=== PATIENT | female | born 1955 | race Caucasian/White ===

== ENCOUNTER 2018-09-09 10:41 | Outpatient (CLI) | payer BC, SELFPAY ==
[2018-09-09 12:53] LABS: HCT 45.9 % (36.0-46.0); HGB 15.2 g/dL (12.0-15.5); Mean Corp. HGB Concentration 33.1 g/dL (32.0-36.0); Mean Corpuscular Hemoglobin 30.9 pg (27.0-33.0); Mean Corpuscular Volume 93.3 fL (80-95); Mean Platelet Volume 10.7 fL (8.0-11.0); Platelet Count 240 x1000/uL (130-400); RBC 4.92 m/cumm (4.00-5.20); RBC Distribution Width 13.1 % (11.7-14.6); White Blood Cell Count 7.46 k/cumm (4.4-10.8)
[2018-09-09 13:20] LABS: ALT 62 U/L (12-78); AST 49 U/L (15-37); Albumin 3.6 g/dL (3.4-5.0); Alkaline Phosphatase 149 U/L (46-116); Anion Gap 5.3 mmol/L (3-11); BUN 14 mg/dL (7-18); Bilirubin, Total 0.4 mg/dL (0.2-1.0); CO2 28.7 mmol/L (21.0-32.0); CREATININE 0.98 mg/dL (0.55-1.02); Calcium 9.6 mg/dL (8.5-10.1); Chloride 103 mmol/L (98-107); Cholesterol 226 mg/dL (50-200); Estimated GFR 57.14 (mL/min/1.73m2); Glucose 113 mg/dL (70-100); HDL Cholesterol 50 mg/dL (40-60); LDL CHOLESTEROL 156 mg/dL (<100); Magnesium 1.9 mg/dL (1.8-2.4); Sodium 137 mmol/L (136-145); Total Protein 6.9 g/dL (6.4-8.2); Triglyceride 107 mg/dL (30-150)
== END 2018-09-09 11:01 ==
PROVIDERS: PCP Family Medicine; Visit Provider Family Medicine
DX: Z00.00 Encounter for general adult medical examination without abnormal findings (principal); D75.1 Secondary polycythemia; I10 Essential (primary) hypertension
CPT/HCPCS: 36415; 80053; 80061; 83721; 85027; 83735

== ENCOUNTER 2020-12-13 01:31 | Outpatient (CLI) | payer BC, SELFPAY ==
--- NOTE | 2020-12-13 | DI.DEXA_ITS ---
EXAM: XR DEXA BONE DENSITY W/WO TIERA CLINICAL HISTORY: RT BREAST CA,C50.111,Z17.0,ON ARAOMATSE INHIBITOR, SCREENING FOR OSTEO- TECHNIQUE: Routine DEXA evaluation of the lumbar spine, hip, or forearm. COMPARISON: No exams were available for comparison FINDINGS: Performed on a Hologic unit. Lateral image: No compression fracture evident. Lumbar Spine total T-score: -0.5 Hip total T-score:-0.4 independent reading at the femoral neck yields a T-score of -1.2 Forearm total T-score: -2.2 IMPRESSION: Bone mineral density measures in the osteopenia range. Fracture risk is moderate. Note: Any spine fracture indicates 5x risk for subsequent spine fracture and 2x risk for subsequent h ip fracture. World Health Organization criteria for BMD interpretation classify patients: Normal...... T- Score at or above -1.0 Osteopenic... T- Score between -1.0 and -2.5 Osteoporosis... T-Score at or below -2.5
== END 2020-12-13 01:51 ==
PROVIDERS: PCP Family Medicine; Visit Provider Nurse Practitioner Adult Health
DX: C50.111 Malignant neoplasm of central portion of right female breast (principal); Z17.0 Estrogen receptor positive status [ER+]; Z13.820 Encounter for screening for osteoporosis; M85.88 Other specified disorders of bone density and structure, other site
CPT/HCPCS: 77080

== ENCOUNTER 2022-06-05 03:37 | Outpatient (CLI) | payer BC, SELFPAY ==
[2022-06-05 08:31] LABS: ALT 17 U/L (14-59); AST 21 U/L (15-37); Albumin 3.3 g/dL (3.4-5.0); Alkaline Phosphatase 101 U/L (46-116); Anion Gap 4.9 mmol/L (3-11); BUN 6 mg/dL (7-18); Bilirubin, Total 0.4 mg/dL (0.2-1.0); CO2 30.1 mmol/L (21.0-32.0); CREATININE 0.7 mg/dL (0.55-1.02); Calcium 9.7 mg/dL (8.5-10.1); Calculated LDL 118 mg/dL (<100); Chloride 99 mmol/L (98-107); Cholesterol 185 mg/dL (<200); Estimated GFR 94.15 (mL/min/1.73m2); Glucose 106 mg/dL (74-106); HDL Cholesterol 46 mg/dL (40-60); Potassium 3.5 mmol/L (3.5-5.1); Sodium 134 mmol/L (136-145); Total Protein 7.3 g/dL (6.4-8.2); Triglyceride 107 mg/dL (<150)
== END 2022-06-05 03:38 | disposition home or self-care (01) ==
LOC: LBO 03:37
PROVIDERS: PCP Family Medicine; Visit Provider Family Medicine
DX: I10 Essential (primary) hypertension (principal)
CPT/HCPCS: 36415; 80053; 80061

== ENCOUNTER 2022-08-02 23:14 | Outpatient (REF) | payer BC, SELFPAY ==
[2022-08-02 21:46] LABS: Bilirubin Negative (Negative); Blood Negative (Negative); Clarity Clear (Clear); Glucose Negative (Negative); Ketones Negative (Negative); Leukocyte Esterase Negative (Negative); Nitrite Negative (Negative); Specific Gravity 1.015 (1.005-1.025); Urobilinogen 0.2 EU/dL (Up TO 0.2)
== END 2022-08-02 23:15 | disposition home or self-care (01) ==
LOC: LBN 23:14
PROVIDERS: PCP Family Medicine; Visit Provider Nurse Practitioner Family
DX: R39.9 Unspecified symptoms and signs involving the genitourinary system (principal)
CPT/HCPCS: 81003

== ENCOUNTER 2022-09-11 11:36 | Inpatient (IN) | payer BC, SELFPAY ==
[2022-09-11] VITALS (25 sets, daily range): BP systolic 100–119; BP diastolic 61–75; PULSE 77–97; RESP 16–18; TEMP 36.6–37.2; O2SAT 92–99
--- NOTE | 2022-09-11 12:00 | RT.EKG_ITS ---
APPROVED REPORT Exam: Resting ECG Reason for Exam: weakness Patient Location: E HR:84 bpm ECG Measurements Heart Rate 84 AXIS ND 159 P 58 QRSd 87 QRS 15 QT 385 T 45 QTc 456 Conclusion Sinus rhythm. Low voltage, precordial leads
--- NOTE | 2022-09-11 12:14 | DI.RAD_ITS ---
Exam(s) XR CHEST 1V IN DI DEPT EXAM: XR CHEST 1V IN DI DEPT CLINICAL HISTORY: weakness, weight loss. TECHNIQUE: 2D digital imaging was performed. COMPARISON: CR CHEST 2 VIEWS PA,LAT from 06/30/2013 FINDINGS: Single AP portable view. Heart size normal. Mediastinum not widened. Right lung is clear. There is bandlike infiltrate in t he mid left lung field. No pleural effusions. Air is seen subjacent to right hemidiaphragm but appears to be probably intraluminal within interposi tion bowel loop between the diaphragm right hepatic lobe. IMPRESSION: Bandlike infiltrate mid left lung field. No obvious pleural effusions. DATA REPOSITORY: RADIATION DOSE DELIVERED:
--- NOTE | 2022-09-11 12:14 | ED.GENADUL_ITS ---
Discharge Plan Disposition Patient Disposition: Admit to [facility] Condition: Improving Discharge Details Chief Complaint: GenMedical Clinical Impression: Metastatic carcinoma, Hyponatremia Primary Care Provider: Mehreen Vargas ED Provider: Jayden Lawler Home Meds and New Rx's Prescriptions: No Action nystatin 100,000 unit/gram cream 1 applic Topical DAILY PRN (Reason: rash) Qty: 15 4RF Rx Instructions: pt will call when needed ondansetron 8 mg tablet,disintegrating 8 mg PO Q12H PRN (Reason: nausea and vomiting) Qty: 30 0RF atenolol 25 mg tablet See Rx Instructions .ROUTE .COMPLEX Qty: 90 4RF Dose Instruction: TAKE ONE TABLET BY MOUTH DAILY Rx Instructions: TAKE ONE TABLET BY MOUTH DAILY amlodipine-benazepril [Lotrel] 10-20 mg capsule 1 cap PO DAILY Qty: 90 4RF gabapentin 300 mg capsule 300 mg PO DAILY Qty: 90 12RF letrozole 2.5 mg tablet 2.5 mg PO DAILY Qty: 90 4RF acetaminophen 500 MG tablet 1,000 mg PO Q6H PRN calcium carbonate 600 MG tablet 600 mg PO DAILY Label Comments: unsure of mg 10/24/15 AT cholecalciferol (vitamin D3) 1,000 UNIT tablet 1,000 unit PO DAILY Label Comments: unsure of mg Medical Decision Making 67-year-old female presents from home. She complains of months of decreased p.o. intake, weight loss, lethargy, generalized weakness. She states she believes it is related to depression she has felt since the untimely loss of life of her granddaughter. She does not report any acute change. She denies fever, chills, cough. Patient arrives to the ER alert and interactive. Her pulse was high at 96 and blood pressure 100/65. She is somewhat pale in appearance. The review diagnosis is probable. We would include metabolic abnormality such as dehydration or electrolyte abnormality, anemia, occult urinary tract infection. Her medical history includes adenocarcinoma of the right breast and infiltrating ductal carcinoma of the breast in 2012. Patient had IV access established, she unremarkable orthostatic vital signs. She was referred for laboratory testing. Labs reveal an elevated blood cell count of 19, hematocrit 35, platelets 357. There is left shift present. She is hyponatremic with a sodium of 120 potassium 3.7, chloride 93, bicarb. Creatinine 0.6. AST is elevated at 172, ALT 82. Troponin is negative. Urinalysis is unremarkable.. CT abd/Pelvis & CXR: There is a bandlike infiltrate in the mid left lung field. CT reveals mild ascites, multiple lesions throughout both hepatic lobes. A large mass in the pelvis. Please see the formal report. This is consistent with undifferentiated metastatic carcinoma. The patient has declined colonoscopies throughout her adult life. We discussed today's findings. She agrees to admission and states at this time she would be willing to pursue further work-up for what may be colorectal carcinoma. HPI General Mode of arrival: ambulatory . Date/Time Provider Initiated Documentation: 09/11/22 11:38 . Limitations to Documentation: no limitations . Information obtained by: patient . History of Present Illness 67 year old F presents to the emergency department with the chief complaint of Generalized weakness, malaise, lethargy and weight loss, Patient started experiencing this week(s) and it has been constant. No relieving factors improve symptom(s), No exacerbating factors reported . Patient notes loss of appetite, weakness and other (Feels depressed); denies confusion, chest pain, cough, nausea/vomiting, shortness of breath and syncope. Patient did receive the following treatments prior to arrival, none Related Data Home Medications Medication Instructions Recorded Confirmed acetaminophen 500 mg tablet 1,000 mg PO Q6H PRN 05/22/13 09/11/22 calcium carbonate 600 mg calcium 600 mg PO DAILY 10/24/15 01/25/22 (1,500 mg) tablet cholecalciferol (vitamin D3) 25 1,000 unit PO DAILY 10/24/15 09/11/22 mcg (1,000 unit) tablet nystatin 100,000 unit/gram topical 1 applic topical DAILY PRN rash 09/09/18 01/25/22 cream #15 grams amlodipine 10 mg-benazepril 20 mg 1 cap PO DAILY #90 tab-caps 01/25/22 09/11/22 capsule (Lotrel) atenolol 25 mg tablet See Rx Instructions .Route 01/25/22 09/11/22 .COMPLEX #90 tabs gabapentin 300 mg capsule 300 mg PO DAILY #90 tabs 01/25/22 09/11/22 letrozole 2.5 mg tablet 2.5 mg PO DAILY #90 tabs 01/25/22 09/11/22 ondansetron 8 mg disintegrating 8 mg PO Q12H PRN nausea and 01/25/22 09/11/22 tablet vomiting #30 tabs Previous Rx's Medication Instructions Recorded nystatin 100,000 unit/gram topical 1 applic topical DAILY PRN rash 09/09/18 cream #15 grams amlodipine 10 mg-benazepril 20 mg 1 cap PO DAILY #90 tab-caps 01/25/22 capsule (Lotrel) atenolol 25 mg tablet See Rx Instructions .Route 01/25/22 .COMPLEX #90 tabs gabapentin 300 mg capsule 300 mg PO DAILY #90 tabs 01/25/22 letrozole 2.5 mg tablet 2.5 mg PO DAILY #90 tabs 01/25/22 ondansetron 8 mg disintegrating 8 mg PO Q12H PRN nausea and 01/25/22 tablet vomiting #30 tabs Allergies Allergy/AdvReac Type Severity Reaction Status Date / Time No Known Allergies Allergy Unverified 09/11/22 11:56 General Stated Complaint: GenMedical NELSY: 3 Review of Systems Narrative: 80 pound weight loss over 6 months time. Decreased p.o. intake with loss of appetite. General malaise. Notes she feels depressed but not suicidal. 8 systems reviewed and otherwise negative. See HPI. PFSH All Active Problems (Updated 09/11/22 @ 15:52 by Jayden Lawler MD) Metastatic carcinoma (Acute) Hyponatremia (Acute) [place]enocarcinoma of [place]Chronic) [place]15[place] [facility] [place]filtrating ductal carcinoma of breast (Chronic 01/21/13[place] [facility] [place] lumpectomy,chemo,radiation Annual physical exam (Acute 06/03/17) Essential hypertension (Chronic 06/30/13) 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 White coat syndrome with hypertension (Chronic 10/01/17) Surgical History Breast, Lumpectomy (~02/2013) Cholecystectomy Reduction mammoplasty (~02/2013) Family History Mother , AGE 78 Cervical cancer Father , AGE 67 Hyperlipidemia PTSD (post-traumatic stress disorder) Hypertension Sister Hyperlipidemia Hypertension Brother , AGE 64 Essential hypertension Bladder cancer Alcohol abuse Substance abuse Brother Heart disease Alcohol abuse Substance abuse Hypertension Brother Substance abuse Diabetes Hypertension Alcohol abuse Depression Maternal Grandfather , AGE 78 Heart disease Paternal Grandfather , AGE 75 Heart disease Maternal Grandmother , AGE 85 No problems noted. Paternal Grandmother , AGE 81 No problems noted. Daughter Melanoma Hypertension Social History Smoking/Tobacco Use Status: Never Second Hand Exposure: No Smoking risk assessment performed?: Yes Alcohol Intake: current Alcohol Intake frequency: holidays/special occasions only Alcohol type: hard liquor Drug use: Never Substance use type: does not use Caregiver/Support person: No Household members: none Housing: house Pets and animals: No Sexually active: Yes Do you think of yourself as: straight/heterosexual Current gender identity: female Duration: 30-45 minutes/day Frequency: 3-4 times per week Clarissa/Catholic: Voodoo Special clarissa needs: No Do you feel safe at home: Yes Do you feel safe in your relationship?: Yes Exam Narrative Exam Narrative: GEN: awake, alert, oriented 3. Pleasant, well groomed, interactive. HEAD: Normocephalic, atraumatic ENT: Mucous membranes dry, oropharynx unremarkable, External ear exam unremarkable EYES: PERRL, EOMI NECK: Full ROM, no МАРИЯ, no menigismus CHEST/RESP: Nontender, clear to auscultation bilateral, no wheeze/rhonchi/rales CARDIOVASCULAR: Distant, RRR, no murmur, rub bipin. 2+ Rad pulse bilateral ABDOMEN: Soft, nontender, no mass. +Bowel sounds EXT: Full ROM, no edema, no rash Neuro: Grossly normal neurologic exam, conversant, interactive. Psych: Speech fluent, thoughts congruent, affect flat Course Vital Signs Vital signs: Vital Signs Temperature 36.6 C 09/11/22 11:48 Pulse 96 H 09/11/22 11:48 Respiratory Rate 16 09/11/22 11:48 Blood Pressure 100/65 09/11/22 11:48 Pulse Oximetry 98 09/11/22 11:48 Temperature 36.6 C 09/11/22 11:48 Temperature Source Skin 09/11/22 11:48 Pulse 96 H 09/11/22 11:48 Respiratory Rate 16 09/11/22 11:48 Respiratory Effort 09/11/22 12:06 Respiratory Depth Normal 09/11/22 12:06 Respiratory Pattern Normal 09/11/22 12:06 Blood Pressure 100/65 09/11/22 11:48 Pulse Oximetry 98 09/11/22 11:48 Oxygen Delivery Method Room Air 09/11/22 11:48 Oxygen Flow Rate 0 09/11/22 11:48 Pain Level 0 09/11/22 11:48
[2022-09-11 12:36] LABS: Absolute Eosinophil Count 0.12 10^3/uL (0.0-0.7); Basophils % 0.3; Eosinophils % 0.6; HCT 35.8 % (36.0-46.0); HGB 12.2 g/dL (11.2-15.7); Immature Grans % 0.5; Lymphocytes % 9.4; MCH 30.8 pg (27.0-33.0); MCHC 34.1 % (32.0-36.0); MCV 90 fL (80-95); MPV 8.8 fL (8.0-11.0); Monocytes % 6.6; Neutrophils % 82.6; Platelet Count 357 10^3/uL (130-400); RBC 3.96 10^6/uL (3.93-5.22); RDW 13.6 % (11.7-14.6); RDW-SD 45.8 fL
[2022-09-11 12:37] LABS: Absolute Basophil Count 0.06 10^3/uL (0.0-0.2); Absolute Lymphocyte Count 1.82 10^3/uL (1.2-3.4); Absolute Monocyte Count 1.28 10^3/uL (0.1-0.8); Absolute Neutrophil Count 16.02 10^3/uL (1.2-6.7)
[2022-09-11] MEDS: Normal Saline 1,000 ML 1000 ML IV (13:01)
[2022-09-11 13:02] LABS: ALT 82 U/L (14-59); AST 117 U/L (15-37); Albumin 2.8 g/dL (3.4-5.0); Alkaline Phosphatase 465 U/L (46-116); Anion Gap 8.5 mmol/L (3-11); BUN 11 mg/dL (7-18); Bilirubin, Total 0.9 mg/dL (0.2-1.0); CO2 28.5 mmol/L (21.0-32.0); CREATININE 0.6 mg/dL (0.55-1.02); Calcium 9.3 mg/dL (8.5-10.1); Chloride 93 mmol/L (98-107); Estimated GFR 97.71 (mL/min/1.73m2); Glucose 108 mg/dL (74-106); Magnesium 1.7 mg/dL (1.8-2.4); Potassium 3.7 mmol/L (3.5-5.1); Sodium 130 mmol/L (136-145); TSH 5.63 uIU/mL (0.36-3.74); Total Protein 6.2 g/dL (6.4-8.2); Troponin I < 50 ng/L (<or=60)
[2022-09-11 13:31] LABS: FREE T4 1.33 ng/dL (0.76-1.46)
--- NOTE | 2022-09-11 14:34 | DI.CT_ITS ---
Exam(s) CT ABDOMEN PELVIS W EXAM: CT ABDOMEN PELVIS W CLINICAL HISTORY: weight loss, malaise, elev LFTs. TECHNIQUE: Imaging Protocol: Axial computed tomography images with coronal and sagittal reformatted images were created and reviewed CONTRAST MATERIAL: Intravenous: Omnipaque-350 100cc Oral: None COMPARISON: CT CHEST ABD WITH CONTRAST from 09/10/2014 FINDINGS: VISUALIZED LUNG BASES: There are few small nodular densities in the visualized lung bases which are p robably metastatic given the findings in the abdomen. There are no pleural effusions.. ABDOMEN: There is mild ascites. Abnormal appearing distal esophagus-GE junction-probable hiatal hernia LIVER: There are now multiple lesions throughout both hepatic lobes which were not present in 2015, c onsistent with diffuse metastatic lesions in the liver. GALLBLADDER/BILIARY: Gallbladder is again noted to be surgically absent. CBD is not dilated. PANCREAS: No evidence of pancreatic mass nor dilatation of the pancreatic duct. SPLEEN: Spleen size upper normal 9 millimeters. Not evident on the prior study and therefore possibl y metastatic lesion. Splenic and portal veins are patent. ADRENALS: There are no significant adrenal masses. KIDNEYS:There is an 8 millimeter cyst in the inferior pole the left kidney. No solid renal masses. No calculi nor hydronephrosis.. ABDOMINAL AORTA: Abdominal aorta is not enlarged. LYMPH NODES:There is no retroperitoneal nor paraaortic adenopathy. ABDOMINAL WALL: Mild bilateral and symmetrical anasarca. Small left inguinal hernia. GI: There is no evidence of bowel obstruction, free air, nor abscess. There is a large malignant-appearing ominous mass in the pelvis which exhibits some internal calcific ations, this measuring approximately 7 x 6 by 7 cm. Suspect colorectal malignancy with local extensi on.. There is some associated ascites in the pelvis. PELVIS: GI: Appendix difficult to identify is a separate structure.No evidence of sigmoid diverticulitis. LYMPH NODES: Right obturator region mass measuring approximately 4 x 2 cm, consistent malignancy. Si milar lesion behind the left side of the symphysis pubis. REPRODUCTIVE: Small posterior myometrial fibroid. URINARY BLADDER: No calculi nor obvious masses evident OSSEOUS: No fractures and no significant osseous lesions. IMPRESSION: 1. Large abnormal appearing pelvic mass with local spread and with multiple metastatic lesions throug hout the liver evident as well as some ascites in the abdomen and pelvis. Probable colorectal origin . Regional and distant metastases, including nodules in the partially visualized lung bases which ar e probably metastatic. 2. Kidneys appear unremarkable and there is no hydronephrosis nor hydroureter at this time.. Called by myself to ER physician RADIATION DOSE DELIVERED: 673.64mGy.cm Total DLP DATA REPOSITORY: All CT scans at this facility are submitted to the National Radiology Data Registry (NRDR) Dose Index Registry (DIR) with the [employer] ([employer]). RADIATION OPTIMIZATION: All CT scans at this facility use at least one of these dose optimization te chniques: automated exposure control; mA and/or kV adjustment per patient size (includes targeted exa ms where dose is matched to clinical indication); or iterative reconstruction.
[2022-09-11 14:37] LABS: Bilirubin Negative (Negative); Blood Negative (Negative); Clarity Clear (Clear); Glucose Negative (Negative); Ketones Negative (Negative); Leukocyte Esterase Negative (Negative); Nitrite Negative (Negative); Urobilinogen 0.2 EU/dL (Up TO 0.2)
[2022-09-11] MEDS: Normal Saline - Diluent 50 ML VIAL IV (14:45)
[2022-09-11] MEDS: Omnipaque 350 MG/ML 100 ML BTL IJ (14:45)
[2022-09-11 16:55] LABS: Source Nasal/Nares
--- NOTE | 2022-09-11 17:24 | HPE_ITS ---
Date of service: 09/11/22 Time of Service: 17:25 Assessment and Plan Assessment and plan (1) Metastatic carcinoma: Status: Acute Assessment and plan: Newly dxd colorectal mass with large metastatic burden to liver. Gen Surg has planned endoscopy with bx for tomorrow. Bowel prep in progress. Palliative has seen. (2) Unintentional weight loss: Status: Acute Assessment and plan: Secondary to the above. She has also had prolonged grief related to the of a granddaughter last year. This may have been somewhat contributory to her wt loss. Marinol initiated. Remeron 15mg nightly initiated. (3) Essential hypertension: Status: Chronic Assessment and plan: Low normal BP readings. Not on an antihypertensive medication. (4) Neuropathy: Status: Chronic Assessment and plan: Continue gabapentin (5) Discharge planning issues: Status: Acute Assessment and plan: [place] [facility] [place] to be [place]; after bx obtained. History of Present Illness History of Present Illness Chief Complaint: Weakness, wt loss Narrative: This is a 67 yo female with a PMH of breast CA tx 10 yrs ago, Essential HTN, neurophaty. She presented to the ED complaining of generalized weakness, malaise, unintentional wt loss. BMI in PCP clinic 01/25/22 was 29.7; current BMI of 20.2. She denies N/V/abd pain. No melena/hematochezia, F/C. No cough/sputum, SOA. + anorexia. She has attributed this to depression from grieving the of her granddaughter 1 year ago. W/U in the ED showed an elevated WBC count of 19. Hgb 12.2. Na low at 130. Elevated LFTs; AST 172, ALT 82. Negative troponin. UA unremarkable. CT abd/pelvis showed mild ascite, a large pelvic mass likely colorectal in origin and multiple lesions throughout the liver. CXR with banklike infiltrate in left mid lung field. Rocephin in itiated in the ED. Review of Systems All systems reviewed & are unremarkable except as noted in HPI and below PFSH All Active Problems (Updated 09/12/22 @ 16:53 by Wilber Jimenes MD) Discharge planning issues (Acute) Unintentional weight loss (Acute) Metastatic carcinoma (Acute) Hyponatremia (Acute) Adenocarcinoma of right breast (Chronic) 09/23/15; [facility] [place]ITIVE Infiltrating ductal carcinoma of breast (Chronic 01/21/13) [facility] [place] BREAST lumpectomy,chemo,radiation Annual physical exam (Acute 06/03/17) Essential hypertension (Chronic 06/30/13) 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 White coat syndrome with hypertension (Chronic 10/01/17) Surgical History Breast, Lumpectomy (~02/2013) Cholecystectomy Reduction mammoplasty (~02/2013) Family History Mother , AGE 78 Cervical cancer Father , AGE 67 Hyperlipidemia PTSD (post-traumatic stress disorder) Hypertension Sister Hyperlipidemia Hypertension Brother , AGE 64 Essential hypertension Bladder cancer Alcohol abuse Substance abuse Brother Heart disease Alcohol abuse Substance abuse Hypertension Brother Substance abuse Diabetes Hypertension Alcohol abuse Depression Maternal Grandfather , AGE 78 Heart disease Paternal Grandfather , AGE 75 Heart disease Maternal Grandmother , AGE 85 No problems noted. Paternal Grandmother , AGE 81 No problems noted. Daughter Melanoma Hypertension Social History Smoking/Tobacco Use Status: Never Second Hand Exposure: No Smoking risk assessment performed?: Yes Alcohol Intake: current Alcohol Intake frequency: holidays/special occasions only Alcohol type: hard liquor Drug use: Never Substance use type: does not use Caregiver/Support person: No Household members: none Housing: house Pets and animals: No Sexually active: Yes Do you think of yourself as: straight/heterosexual Current gender identity: female Duration: 30-45 minutes/day Frequency: 3-4 times per week Clarissa/Anabaptist: Episcopalian Special clarissa needs: No Do you feel safe at home: Yes Do you feel safe in your relationship?: Yes Meds Allergies and Home Medications Allergies Allergy/AdvReac Type Severity Reaction Status Date / Time No Known Allergies Allergy Unverified 09/11/22 11:56 Home Medications Medication Instructions Recorded Confirmed Type acetaminophen 500 mg tablet 1,000 mg PO Q6H PRN 05/22/13 09/11/22 History calcium carbonate 600 mg calcium 600 mg PO DAILY 03/07/16 06/09/22 History (1,500 mg) tablet cholecalciferol (vitamin D3) 25 1,000 unit PO DAILY 10/24/15 09/11/22 History mcg (1,000 unit) tablet nystatin 100,000 unit/gram topical 1 applic topical DAILY PRN rash 09/09/18 01/25/22 Rx cream #15 grams amlodipine 10 mg-benazepril 20 mg 1 cap PO DAILY #90 tab-caps 01/25/22 09/11/22 Rx capsule (Lotrel) atenolol 25 mg tablet See Rx Instructions .Route 01/25/22 09/11/22 Rx .COMPLEX #90 tabs gabapentin 300 mg capsule 300 mg PO DAILY #90 tabs 01/25/22 09/11/22 Rx letrozole 2.5 mg tablet 2.5 mg PO DAILY #90 tabs 01/25/22 09/11/22 Rx ondansetron 8 mg disintegrating 8 mg PO Q12H PRN nausea and 01/25/22 09/11/22 Rx tablet vomiting #30 tabs Exam Narrative Exam Narrative: GEN: Pleasant, well groomed, interactive. Frail appearing. HEAD: Normocephalic, atraumatic ENT: Dry mucous membranes. EYES: PERRL, EOMI, sclera nonicteric. CHEST/RESP: Lungs clear. Nonlabored breathing. CARDIOVASCULAR: Distant, RRR, no murmur ABDOMEN: Soft, nontender, no mass. +Bowel sounds EXT: Full ROM, no edema, no rash Neuro: Grossly normal neurologic exam, conversant, interactive. Psych: Speech fluent, thoughts congruent, affect appropriate. Results Labs Result diagrams: 09/12/22 06:10 09/12/22 06:10 Labs: Laboratory Results - last 24 hr 09/11/22 09/11/22 09/11/22 12:30 12:30 12:30 WBC 19.40 H RBC 3.96 Hgb 12.2 Hct 35.8 L MCV 90 MCH 30.8 MCHC 34.1 RDW 13.6 Plt Count 357 MPV 8.8 Immature Gran % 0.5 Neutrophils % 82.6 Lymphocytes % 9.4 Monocytes % 6.6 Eosinophils % 0.6 Basophils % 0.3 Nucleated RBC % 0.0 Absolute Neutrophils 16.02 H Absolute Lymphocytes 1.82 Absolute Monocytes 1.28 H Absolute Eosinophils 0.12 Absolute Basophils 0.06 Sodium 130 L Potassium 3.7 Chloride 93 L Carbon Dioxide 28.5 Anion Gap 8.5 BUN 11 Creatinine 0.6 Est GFR (CKD-EPI 2020) 97.71 Glucose 108 H Calcium 9.3 Magnesium 1.7 L Total Bilirubin 0.9 AST 117 H ALT 82 H Alkaline Phosphatase 465 H Troponin I < 50 Total Protein 6.2 L Albumin 2.8 L TSH 5.63 H Free T4 1.33 Urine Color Urine Clarity Urine pH Ur Specific [place] Urine Protein Urine Ketones Urine Blood Urine Nitrite Urine Bilirubin Urine Urobilinogen Ur Leukocyte Esterase Urine Glucose COVID-19 Source 09/11/22 09/11/22 14:27 16:50 WBC RBC Hgb Hct MCV MCH MCHC RDW Plt Count MPV Immature Gran % Neutrophils % Lymphocytes % Monocytes % Eosinophils % Basophils % Nucleated RBC % Absolute Neutrophils Absolute Lymphocytes Absolute Monocytes Absolute Eosinophils Absolute Basophils Sodium Potassium Chloride Carbon Dioxide Anion Gap BUN Creatinine Est GFR (CKD-EPI 2020) Glucose Calcium Magnesium Total Bilirubin AST ALT Alkaline Phosphatase Troponin I Total Protein Albumin TSH Free T4 Urine Color Yellow Urine Clarity Clear Urine pH 6.0 Ur Specific [place] 1.010 Urine Protein Negative Urine Ketones Negative Urine Blood Negative Urine Nitrite Negative Urine Bilirubin Negative Urine Urobilinogen 0.2 Ur Leukocyte Esterase Negative Urine Glucose Negative COVID-19 Source Nasal/Nares Last Vital Signs Temp 36.6 C 09/11/22 11:48 Pulse 81 09/11/22 14:00 Resp 16 09/11/22 11:48 BP 105/61 09/11/22 14:00 Pulse Ox 92 09/11/22 14:23 Time Spent Time spent with Patient: <40 minutes Time was spent: preparing to see the patient(eg.review tests), ordering medications,tests, procedures, referring, communicating with other health ostomy care nurse and care coordination
[2022-09-11 17:27] LABS: COVID-19 PCR Negative (Negative)
[2022-09-11] MEDS: cefTRIAXone 1 GM/50 ML BAG IVPB (18:12)
[2022-09-11] MEDS: Enoxaparin 40 MG/0.4 ML SYR SC (18:12)
[2022-09-11] MEDS: Magnesium Oxide 400 MG TAB PO (18:13)
[2022-09-11] MEDS: Mirtazapine 15 MG TAB PO (21:12)
[2022-09-11] MEDS: Gabapentin 300 MG CAP PO (22:38)
--- NOTE | 2022-09-12 | DI.RAD_ITS ---
Exam(s) XR CHEST 2V PA LATERAL EXAM: XR CHEST 2V PA LATERAL CLINICAL HISTORY: Pneumonia TECHNIQUE: 2D digital imaging was performed. COMPARISON: CR CHEST 2 VIEWS PA,LAT from 06/30/[address] ABDOMEN PELVIS W from 09/11/2022 CR XR CHEST 1V IN DI DEPT from 09/11/2022 FINDINGS: HEART: Normal size. Aorta: Not dilated. Calcification at arch. PULMONARY VASCULATURE: Normal. LUNGS: Multiple pulmonary nodules, greatest in the left upper lobe. Improvement in linear density se en in the left mid lung field. Linear density now seen right middle lobe, likely atelectasis. No de finite pneumonia. PLEURAL SPACE: No pleural effusion or pneumothorax. BONE flowing osteophytes. No compression fracture. IMPRESSION: Pulmonary metastases. No visible pneumonia. DATA REPOSITORY: RADIATION DOSE DELIVERED:
[2022-09-12 06:33] LABS: Abs Immature Grans 0.06 10^3/uL (0.0-0.06); Absolute Lymphocyte Count 1.73 10^3/uL (1.2-3.4); Basophils % 0.6; Eosinophils % 1.1; HCT 37.2 % (36.0-46.0); HGB 12.6 g/dL (11.2-15.7); Immature Grans % 0.4; Lymphocytes % 10.1; MCH 30.9 pg (27.0-33.0); MCHC 33.9 % (32.0-36.0); MCV 91 fL (80-95); MPV 9.1 fL (8.0-11.0); Monocytes % 7.5; Neutrophils % 80.3; Platelet Count 332 10^3/uL (130-400); RBC 4.08 10^6/uL (3.93-5.22); RDW 13.9 % (11.7-14.6); RDW-SD 46.4 fL; WBC 17.14 10^3/uL (4.4-10.8)
[2022-09-12 06:35] LABS: Absolute Eosinophil Count 0.19 10^3/uL (0.0-0.7); Absolute Monocyte Count 1.29 10^3/uL (0.1-0.8); Absolute Neutrophil Count 13.76 10^3/uL (1.2-6.7)
[2022-09-12 06:47] LABS: Anion Gap 7.1 mmol/L (3-11); BUN 7 mg/dL (7-18); CO2 27.9 mmol/L (21.0-32.0); CREATININE 0.5 mg/dL (0.55-1.02); Calcium 9.2 mg/dL (8.5-10.1); Chloride 97 mmol/L (98-107); Glucose 88 mg/dL (74-106); Magnesium 1.6 mg/dL (1.8-2.4); Potassium 3.5 mmol/L (3.5-5.1); Sodium 132 mmol/L (136-145)
[2022-09-12 07:32] VITALS: BP 111/73; PULSE 77; RESP 17; TEMP 36.8; O2SAT 97
[2022-09-12] MEDS: Magnesium Oxide 400 MG TAB PO ×2 (07:57→21:05)
[2022-09-12] MEDS: Letrozole 2.5 MG TAB PO (07:57)
[2022-09-12] MEDS: Dronabinol 2.5 MG CAP PO ×2 (07:57→15:50)
--- NOTE | 2022-09-12 08:10 | SCONE_ITS ---
Date of service: 09/12/22 Time of Service: 11:00 Assessment and Plan Assessment and plan (1) Metastatic carcinoma: Status: Acute Assessment and plan: 67-year-old woman with what appears to be wide?spread metastatic disease throughout both the abdomen and the thorax. Presumable primary is a colorectal tumor seen on cross-sectional imaging. Based off of her described bowel habit changes I suspect that this is going to be a colorectal primary clinically as well. Her cramping as well as the liquid component is probably secondary to some mild amount of partial obstruction that is happening. The differential diagnosis does include metastatic breast cancer though this is felt to be less likely. There is no CT evidence of large bowel obstruction. I had a long and detailed discussion with the patient and her daughter at the bedside and discussed the advanced nature of her disease. Specifically the amount of lesions in her liver and the presence of some ascites is quite ominous from an overall prognostic standpoint. I did relay to her that this is advanced stage IV disease that without treatment, she likely does not have long to survive. In order to help guide therapy and prognosis for management, it is imperative to get tissue diagnosis and I have recommended that she undergo a colonoscopy. Her and her daughter are in agreement with this and understand the indications for and wish to proceed. Overall plan: #We will prep her this afternoon for a colonoscopy tomorrow #The remainder of care and referrals per medical/hospitalist team. #Surgical intervention reserved for obstructive issues, should they arise and if they did, a palliative loop sigmoid colostomy should be performed. History of Present Illness Narrative: 67-year-old woman presents to the hospital acutely because of discomfort in her lower abdomen and cramping that has been going on for weeks maybe months. She has also been losing weight during this time. She denies any difficulty going to the bathroom but does report that most of her stools have been liquid for the last few months. This is something new for her. She denies seeing any bleeding. Cross-sectional imaging demonstrated a pelvic mass and also lesions throughout her liver and in the lung bases as well. She has never had a colonoscopy. She does have a history of breast cancer a number of years ago. She has had her gallbladder removed but no other intra-abdominal surgery. [facility] All Active Problems Metastatic carcinoma (Acute) Hyponatremia (Acute) Adenocarcinoma of right breast (Chronic) 09/23/15; [facility]; [place] POS[place] Infiltrating ductal carcinoma of breast (Chronic 01/21/13) [facility]; RIGHT BREAST lumpectomy,chemo,radiation Annual physical exam (Acute 06/03/17) Essential hypertension (Chronic 06/30/13) 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 White coat syndrome with hypertension (Chronic 10/01/17) Surgical History Breast, Lumpectomy (~02/2013) Cholecystectomy Reduction mammoplasty (~02/2013) Family History Mother , AGE 78 Cervical cancer Father , AGE 67 Hyperlipidemia PTSD (post-traumatic stress disorder) Hypertension Sister Hyperlipidemia Hypertension Brother , AGE 64 Essential hypertension Bladder cancer Alcohol abuse Substance abuse Brother Heart disease Alcohol abuse Substance abuse Hypertension Brother Substance abuse Diabetes Hypertension Alcohol abuse Depression Maternal Grandfather , AGE 78 Heart disease Paternal Grandfather , AGE 75 Heart disease Maternal Grandmother , AGE 85 No problems noted. Paternal Grandmother , AGE 81 No problems noted. Daughter Melanoma Hypertension Social History Smoking/Tobacco Use Status: Never Second Hand Exposure: No Smoking risk assessment performed?: Yes Alcohol Intake: current Alcohol Intake frequency: holidays/special occasions only Alcohol type: hard liquor Drug use: Never Substance use type: does not use Caregiver/Support person: No Household members: none Housing: house Pets and animals: No Sexually active: Yes Do you think of yourself as: straight/heterosexual Current gender identity: female Duration: 30-45 minutes/day Frequency: 3-4 times per week Clarissa/Yazdanism: Restorationism Special clarissa needs: No Do you feel safe at home: Yes Do you feel safe in your relationship?: Yes Exam Narrative Exam Narrative: General: Nontoxic, cachectic, interactive and comfortable Neuro: Alert and oriented x3 Psych: Appropriate mood and affect, good insight and understanding Abdomen: Soft, nondistended and nontender Results Last Vital Signs Temp 98.2 F 09/12/22 07:32 Pulse 77 09/12/22 07:32 Resp 17 09/12/22 07:32 BP 111/73 09/12/22 07:32 Pulse Ox 97 09/12/22 07:32 Labs Result diagrams: 09/12/22 06:10 09/12/22 06:10 Labs: Laboratory Results - last 24 hr 09/11/22 09/11/22 09/11/22 12:30 12:30 12:30 WBC 19.40 H RBC 3.96 Hgb 12.2 Hct 35.8 L MCV 90 MCH 30.8 MCHC 34.1 RDW 13.6 Plt Count 357 MPV 8.8 Immature Gran % 0.5 Neutrophils % 82.6 Lymphocytes % 9.4 Monocytes % 6.6 Eosinophils % 0.6 Basophils % 0.3 Nucleated RBC % 0.0 Absolute Neutrophils 16.02 H Absolute Lymphocytes 1.82 Absolute Monocytes 1.28 H Absolute Eosinophils 0.12 Absolute Basophils 0.06 Sodium 130 L Potassium 3.7 Chloride 93 L Carbon Dioxide 28.5 Anion Gap 8.5 BUN 11 Creatinine 0.6 Est GFR (CKD-EPI 2020) 97.71 Glucose 108 H Calcium 9.3 Magnesium 1.7 L Total Bilirubin 0.9 AST 117 H ALT 82 H Alkaline Phosphatase 465 H Troponin I < 50 Total Protein 6.2 L Albumin 2.8 L TSH 5.63 H Free T4 1.33 Urine Color Urine Clarity Urine pH Ur Specific [place] Urine Protein Urine Ketones Urine Blood Urine Nitrite Urine Bilirubin Urine Urobilinogen Ur Leukocyte Esterase Urine Glucose COVID-19 Source SARS-CoV-2 (PCR) 09/11/22 09/11/22 09/12/22 14:27 16:50 06:10 WBC RBC Hgb Hct MCV MCH MCHC RDW Plt Count MPV Immature Gran % Neutrophils % Lymphocytes % Monocytes % Eosinophils % Basophils % Nucleated RBC % Absolute Neutrophils Absolute Lymphocytes Absolute Monocytes Absolute Eosinophils Absolute Basophils Sodium 132 L Potassium 3.5 Chloride 97 L Carbon Dioxide 27.9 Anion Gap 7.1 BUN 7 Creatinine 0.5 L Est GFR (CKD-EPI 2020) 102.10 Glucose 88 Calcium 9.2 Magnesium 1.6 L Total Bilirubin AST ALT Alkaline Phosphatase Troponin I Total Protein Albumin TSH Free T4 Urine Color Yellow Urine Clarity Clear Urine pH 6.0 Ur Specific Laurel 1.010 Urine Protein Negative Urine Ketones Negative Urine Blood Negative Urine Nitrite Negative Urine Bilirubin Negative Urine Urobilinogen 0.2 Ur Leukocyte Esterase Negative Urine Glucose Negative COVID-19 Source Nasal/Nares SARS-CoV-2 (PCR) Negative 09/12/22 06:10 WBC 17.14 H RBC 4.08 Hgb 12.6 Hct 37.2 MCV 91 MCH 30.9 MCHC 33.9 RDW 13.9 Plt Count 332 MPV 9.1 Immature Gran % 0.4 Neutrophils % 80.3 Lymphocytes % 10.1 Monocytes % 7.5 Eosinophils % 1.1 Basophils % 0.6 Nucleated RBC % 0.0 Absolute Neutrophils 13.76 H Absolute Lymphocytes 1.73 Absolute Monocytes 1.29 H Absolute Eosinophils 0.19 Absolute Basophils 0.10 Sodium Potassium Chloride Carbon Dioxide Anion Gap BUN Creatinine Est GFR (CKD-EPI 2020) Glucose Calcium Magnesium Total Bilirubin AST ALT Alkaline Phosphatase Troponin I Total Protein Albumin TSH Free T4 Urine Color Urine Clarity Urine pH Ur Specific Laurel Urine Protein Urine Ketones Urine Blood Urine Nitrite Urine Bilirubin Urine Urobilinogen Ur Leukocyte Esterase Urine Glucose COVID-19 Source SARS-CoV-2 (PCR)
[2022-09-12 08:41] VITALS: BP 102/70; BP 116/74; BP 92/66; PULSE 100; PULSE 85; PULSE 96
--- NOTE | 2022-09-12 09:03 | PDOC.CMIN ---
- If Service Date Differs Date of service: 09/12/22 Time of Service: 09:03 Care Management Initial Assess REASON FOR HOSPITALIZATION:: pelvic mass PAST MEDICAL HISTORY/PAST SURGICAL HISTORY:: All Active Problems . Metastatic carcinoma (Acute). Hyponatremia (Acute). Adenocarcinoma of right breast (Chronic). 09/23/15; [facility]; ER,[place] POSITIVE. Infiltrating ductal carcinoma of breast (Chronic 01/21/13). [facility]; RIGHT BREAST. lumpectomy,chemo,radiation. Annual physical exam (Acute 06/03/17). Essential hypertension (Chronic 06/30/13). 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). due to chemo. White coat syndrome with hypertension (Chronic 10/01/17). Surgical History . Breast, Lumpectomy (~02/2013). Cholecystectomy. Reduction mammoplasty (~02/2013) PREVIOUS FUNCTIONAL STATUS/SOCIAL/FAMILY SUPPORTS:: Shana lives alone in a 2 family home in [place]. Her brother and his family live upstairs and Shana lives downstairs. She has one child, a daughter Misael, who also lives in [place] and is very supportive. 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 She is independent at baseline and continues to drive and ia able to perform all ADLs and rn sane. CURRENT FUNCTIONAL STATUS:: Shana was sitting up in bed visiting with her daughter Misael when CM met with her. She was alert and oriented and willing to engage in conversation. Shana reported that she is feeling well. She explained that she sought medical care yesterday because she has been feeling weak and lethargis, She stated that she has been having a hard time eating and has lost 80 pounds since last November. She had a surgical consult this morning and has agreed to have a colonoscopy tomorrow or Saturday. It is likely she will have a biopsy of the pelvic mass for further evaluation, diagnosis and treatment options. ADVANCE DIRECTIVES:: [facility] on file- yaw Douglas Has patient been provided with info about the portal/API?: Yes Did the patient sign up for the portal?: No CODE STATUS:: Full Code INSURANCE COVERAGE / FINANCIAL ISSUES:: DREAD [facility] CURRENT HOME/COMMUNITY SERVICES/EQUIPMENT:: none PRIMARY CARE PHYSICIAN:: Mehreen Vargas POTENTIAL DISCHARGE NEEDS:: follow up with PCP, Oncology and possibly surgery PATIENT/FAMILY EDUCATION NEEDS:: Review of discharge instructions, limitations, activity, follow up plan, discuss Ask Me Three TRANSPORTATION:: private vehicle with family PLAN:: Anticipate Shana will be discharged home with no new services. She will follow up with Surgery, her PCP and likely Oncology at [facility]. She will transport via private vehicle with her daughter or brother. CM will continue to support Shana and her discharge planning needs.
--- NOTE | 2022-09-12 10:46 | CHAPLAIN ---
I had a short initial visit with Shana. She said she was in the ED most of yesterday and undergoing tests. She was moved to /S last evening. According to Care Management notes it's unclear at this time if Shana will be transferred to a tertiary center or continue without outpatient testing. I explained my role and offered support. I will continue to visit if Shana remains here.
--- NOTE | 2022-09-12 11:24 | PHA.REVIEW2 ---
Pharmacy Admission Review - Admission Clinical Review (Last Reviewed 09/12/22 @ 07:30 by Wilber Jimenes MD) Metastatic carcinoma (Acute) Hyponatremia (Acute) No Known Allergies Allergy (Unverified 09/11/22 11:56) Resuscitation Status Full Code Height 5 ft 2 in Weight 50.126 kg - Renal Dosing Renal Dosing: BUN 7 mg/dL (7-18) 09/12/22 06:10 Creatinine 0.5 mg/dL (0.55-1.02) L 09/12/22 06:10 Medications needing adjustments: Reviewed (Crcl ~42.6 mL/min current meds okay) - Anticoagulation Anticoagulation: Hgb 12.6 g/dL (11.2-15.7) 09/12/22 06:10 Hct 37.2 % (36.0-46.0) 09/12/22 06:10 Plt Count 332 10^3/uL (130-400) 09/12/22 06:10 Creatinine 0.5 mg/dL (0.55-1.02) L 09/12/22 06:10 DVT Prophylaxis: Reviewed Medications: Enoxaparin Therapeutic Anticoagulation: N/A - Opiate Usage Evaluate Pain Scale/Pains Meds: N/A - Relevant Labs Sodium 132 mmol/L (136-145) L 09/12/22 06:10 Potassium 3.5 mmol/L (3.5-5.1) 09/12/22 06:10 Chloride 97 mmol/L (98-107) L 09/12/22 06:10 Magnesium 1.6 mg/dL (1.8-2.4) L 09/12/22 06:10 Electrolytes, C-Reactive P, ESR: Reviewed (PO mag replacement ordered) - DM Control DM Control: Glucose 88 mg/dL (74-106) 09/12/22 06:10 DM Control: N/A - Cardiac Review Cardiac Review: Troponin I < 50 ng/L (<or=60) 09/11/22 12:30 BP, HR, EF%: Reviewed (BP has been within normal limits and HR has been normal to elevated so far this admission) - Qtc Review QTc: Reviewed (QTc 456 on admission) - IV to PO Switch IV Medications: Reviewed - Home Meds Relevent Home Meds Not ordered & why?: amlodipine/benazepril, atenolol, calcium, cholecalciferol, nystatin (PRN), ondansetron (PRN) - Current meds Current Medication Order Review: Reviewed - Comments Comments/Follow Ups: Watch VS, mag, labs, and for med changes (possible renal dose adjusments, home meds) Antibiotic Review - Pharmacy Antibiotic Review Pharmacy Antibiotic Activity: Reviewed, no change (ceftriaxone (day 2) ordered for pneumonia)
--- NOTE | 2022-09-12 12:42 | PCNE_ITS ---
Date of service: 09/12/22 Time of Service: 12:42 History of Present Illness History of Present Illness Chief Complaint: Abdominal pain Narrative: From H and P History of Present Illness History of Present Illness?Chief Complaint: Weakness, wt loss?Narrative: This is a 67 yo female with a PMH of breast CA tx 10 yrs ago, Essential HTN, neurophaty.? She presented to the ED complaining of generalized weakness, malaise, unintentional wt loss.? BMI in PCP clinic 01/25/22 was 29.7; current BMI of 20.2.? She denies N/V/abd pain. No melena/hematochezia, F/C. No cough/sputum, SOA.? + anorexia.? She has attributed this to depression from grieving the of her granddaughter 1 year ago.? W/U in the ED showed an elevated WBC count of 19.? Hgb 12.2.? Na low at 130. Elevated LFTs; AST 172, ALT 82.? Negative troponin.? UA unremarkable. CT abd/pelvis showed mild ascite, a large pelvic mass likely colorectal in origin and multiple lesions throughout the liver.? CXR with banklike infiltrate in left mid lung field. Rocephin in itiated in the ED. ? Surgical Eval (1) Metastatic carcinoma: ?Status:?Acute ? ? ? Assessment and plan: 67-year-old woman with what appears to be wide?spread metastatic disease throughout both the abdomen and the thorax.? Presumable primary is a colorectal tumor seen on cross-sectional imaging.? Based off of her described bowel habit changes I suspect that this is going to be a colorectal primary clinically as well.? Her cramping as well as the liquid component is probably secondary to some mild amount of partial obstruction that is happening. ? The differential diagnosis does include metastatic breast cancer though this is felt to be less likely. There is no CT evidence of large bowel obstruction.? I had a long and detailed discussion with the patient and her daughter at the bedside and discussed the advanced nature of her disease.? Specifically the amount of lesions in her liver and the presence of some ascites is quite ominous from an overall prognostic standpoint.? I did relay to her that this is advanced stage IV disease that without treatment, she likely does not have long to survive. In order to help guide therapy and prognosis for management, it is imperative to get tissue diagnosis and I have recommended that she undergo a colonoscopy.? Her and her daughter are in agreement with this and understand the indications for and wish to proceed. Interim history Shana is a 67-year-old woman. I am her PCP. I am here at the request of Dr. Foley as a palliative consult. Shana has had weight loss and grief. She started getting abdominal pain which worsened. She came to the ER. Was found to have metastatic cancer presumed from the colon. She has met with the surgeon and does plan to have a colonoscopy tomorrow. She is sitting on her hospital bed having just eaten. Her daughter Cathy is in the room. Consults Consult date: 09/12/22 Requesting physician: Wilber Jimenes Assessment and Plan Assessment and plan (1) Metastatic carcinoma: Status: Acute (2) Unintentional weight loss: Status: Acute (3) Palliative care patient: Status: Acute Assessment and plan: I spoke with Jennifer for quite some time. She needs to go through the process so she can better understand what her options are. She understands that she will not be cured from this cancer but that she may have high-quality time depending upon treatment options. She is presently comfortable and happy about that. She will undergo colonoscopy tomorrow. After the biopsy is obtained then she will be able to go the next step with an oncologist and more imaging. We talked about all of her choices. She needs more time and input to really digest all of this. We have spoken about her CODE STATUS in the past. She is a full code. I will not readdress this until she has more information. She is a very sensible woman and I am certain that she will make the right choices for herself. Discussion with hospitalist Review of Systems Narrative: Shana states that today she is feeling good. She is not short of breath or havi ng chest pain. She is having less abdominal pain. She is getting ready to start her colonoscopy prep. She is understandably concerned and anxious. PFSH All Active Problems (Updated 09/13/22 @ 07:53 by Mehreen Vargas MD, DC) Palliative care patient (Acute) Discharge planning issues (Acute) Unintentional weight loss (Acute) Metastatic carcinoma (Acute) Hyponatremia (Acute) Adenocarcinoma of right breast (Chronic) 09/23/15; [facility] – [place]; ER,[place] POSITIVE Infiltrating ductal carcinoma of breast (Chronic 01/21/13) [facility] – [place]; RIGHT BREAST lumpectomy,chemo,radiation Annual physical exam (Acute 06/03/17) Essential hypertension (Chronic 06/30/13) 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 White coat syndrome with hypertension (Chronic 10/01/17) Surgical History Breast, Lumpectomy (~02/2013) Cholecystectomy Reduction mammoplasty (~02/2013) Family History Mother , AGE 78 Cervical cancer Father , AGE 67 Hyperlipidemia PTSD (post-traumatic stress disorder) Hypertension Sister Hyperlipidemia Hypertension Brother , AGE 64 Essential hypertension Bladder cancer Alcohol abuse Substance abuse Brother Heart disease Alcohol abuse Substance abuse Hypertension Brother Substance abuse Diabetes Hypertension Alcohol abuse Depression Maternal Grandfather , AGE 78 Heart disease Paternal Grandfather , AGE 75 Heart disease Maternal Grandmother , AGE 85 No problems noted. Paternal Grandmother , AGE 81 No problems noted. Daughter Melanoma Hypertension Social History Smoking/Tobacco Use Status: Never Second Hand Exposure: No Smoking risk assessment performed?: Yes Alcohol Intake: current Alcohol Intake frequency: holidays/special occasions only Alcohol type: hard liquor Drug use: Never Substance use type: does not use Caregiver/Support person: No Household members: none Housing: house Pets and animals: No Sexually active: Yes Do you think of yourself as: straight/heterosexual Current gender identity: female Duration: 30-45 minutes/day Frequency: 3-4 times per week Clarissa/Nondenominational: Sikh Special clarissa needs: No Do you feel safe at home: Yes Do you feel safe in your relationship?: Yes Exam Narrative Exam Narrative: Shana is a 67-year-old woman alert and oriented x3. She has good insight as to what needs to happen in order to get more answers so that she can make choices. She is speaking in complete sentences. She is able to move her neck and upper body with ease. Results Last Vital Signs Temp 98.2 F 09/12/22 07:32 Pulse 85 09/12/22 08:41 Resp 17 01/25/23 07:32 BP 116/74 09/12/22 08:41 Pulse Ox 97 09/12/22 07:32 Patient Name: Shana Nuñez Unit #: [id number] Loc: ER ? Ordering Provider:Jayden Dillard M.D. Status: REG ER ? Primary Care Provider: Mehreen Vargas M.D., DC Date of Exam: 09/11/22 Sex: F ? : 1955 Age: 67 ? Exam(s) a CT:CT abdomen & pelvis w Exam(s) CT ABDOMEN ? PELVIS W EXAM: ? CT ABDOMEN ? PELVIS W CLINICAL HISTORY: ? weight loss, malaise, elev LFTs. ? TECHNIQUE:? Imaging Protocol: Axial computed tomography images with coronal and sagittal reformatted images were created and reviewed CONTRAST MATERIAL:? Intravenous: Omnipaque-350? 100cc Oral: None COMPARISON:? CT CHEST ? ABD WITH CONTRAST from 09/10/2014 FINDINGS: VISUALIZED LUNG BASES: There are few small nodular densities in the visualized lung bases which are probably metastatic given the findings in the abdomen.? There are no pleural effusions..? ABDOMEN: There is mild ascites.? Abnormal appearing distal esophagus-GE junction-probable hiatal hernia LIVER: There are now multiple lesions throughout both hepatic lobes which were not present in 2015, consistent with diffuse metastatic lesions in the liver. GALLBLADDER/BILIARY: Gallbladder is again noted to be surgically absent.? CBD is not dilated. PANCREAS: No evidence of pancreatic mass nor dilatation of the pancreatic duct.? SPLEEN: Spleen size upper normal 9 millimeters.? Not evident on the prior study and therefore possibly metastatic lesion.? Splenic and portal veins are patent. ADRENALS: There are no significant adrenal masses. KIDNEYS:There is an 8 millimeter cyst in the inferior pole the left kidney.? No solid renal masses.? No calculi nor hydronephrosis.. ABDOMINAL AORTA: Abdominal aorta is not enlarged. LYMPH NODES:There is no retroperitoneal nor paraaortic adenopathy. ABDOMINAL WALL: Mild bilateral and symmetrical anasarca.? Small left inguinal hernia. GI: There is no evidence of bowel obstruction, free air, nor abscess. There is a large malignant-appearing ominous mass in the pelvis which exhibits some internal calcifications, this measuring approximately 7 x 6 by 7 cm.? Suspect colorectal malignancy with local extension..? There is some associated ascites in the pelvis. PELVIS:? GI: Appendix difficult to identify is a separate structure.No evidence of sigmoid diverticulitis. LYMPH NODES: Right obturator region mass measuring approximately 4 x 2 cm, consistent malignancy.? Similar lesion behind the left side of the symphysis pubis. REPRODUCTIVE: Small posterior myometrial fibroid. URINARY BLADDER: No calculi nor obvious masses evident OSSEOUS: No fractures and no significant osseous lesions. IMPRESSION: 1. Large abnormal appearing pelvic mass with local spread and with multiple metastatic lesions throughout the liver evident as well as some ascites in the abdomen and pelvis.? Probable colorectal origin.? Regional and distant metastases, including nodules in the partially visualized lung bases which are probably metastatic. 2. Kidneys appear unremarkable and there is no hydronephrosis nor hydroureter at this time.. Labs Result diagrams: 09/12/22 06:10 09/12/22 06:10 Labs: Laboratory Results - last 24 hr 09/11/22 09/11/22 09/11/22 12:30 12:30 14:27 WBC RBC Hgb Hct MCV MCH MCHC RDW Plt Count MPV Immature Gran % Neutrophils % Lymphocytes % Monocytes % Eosinophils % Basophils % Nucleated RBC % Absolute Neutrophils Absolute Lymphocytes Absolute Monocytes Absolute Eosinophils Absolute Basophils Sodium 130 L Potassium 3.7 Chloride 93 L Carbon Dioxide 28.5 Anion Gap 8.5 BUN 11 Creatinine 0.6 Est GFR (CKD-EPI 2020) 97.71 Glucose 108 H Calcium 9.3 Magnesium 1.7 L Total Bilirubin 0.9 AST 117 H ALT 82 H Alkaline Phosphatase 465 H Troponin I < 50 Total Protein 6.2 L Albumin 2.8 L TSH 5.63 H Free T4 1.33 Urine Color Yellow Urine Clarity Clear Urine pH 6.0 Ur Specific [place] 1.010 Urine Protein Negative Urine Ketones Negative Urine Blood Negative Urine Nitrite Negative Urine Bilirubin Negative Urine Urobilinogen 0.2 Ur Leukocyte Esterase Negative Urine Glucose Negative COVID-19 Source SARS-CoV-2 (PCR) 09/11/22 09/12/22 09/12/22 16:50 06:10 06:10 WBC 17.14 H RBC 4.08 Hgb 12.6 Hct 37.2 MCV 91 MCH 30.9 MCHC 33.9 RDW 13.9 Plt Count 332 MPV 9.1 Immature Gran % 0.4 Neutrophils % 80.3 Lymphocytes % 10.1 Monocytes % 7.5 Eosinophils % 1.1 Basophils % 0.6 Nucleated RBC % 0.0 Absolute Neutrophils 13.76 H Absolute Lymphocytes 1.73 Absolute Monocytes 1.29 H Absolute Eosinophils 0.19 Absolute Basophils 0.10 Sodium 132 L Potassium 3.5 Chloride 97 L Carbon Dioxide 27.9 Anion Gap 7.1 BUN 7 Creatinine 0.5 L Est GFR (CKD-EPI 2020) 102.10 Glucose 88 Calcium 9.2 Magnesium 1.6 L Total Bilirubin AST ALT Alkaline Phosphatase Troponin I Total Protein Albumin TSH Free T4 Urine Color Urine Clarity Urine pH Ur Specific [place] Urine Protein Urine Ketones Urine Blood Urine Nitrite Urine Bilirubin Urine Urobilinogen Ur Leukocyte Esterase Urine Glucose COVID-19 Source Nasal/Nares SARS-CoV-2 (PCR) Negative
[2022-09-12] MEDS: Polyethylene Glycol 3350 238 GM BTL PO (14:13)
[2022-09-12] MEDS: Bisacodyl 5 MG TABEC 10 MG PO ×2 (14:42→18:38)
[2022-09-12 15:40] VITALS: BP 111/73; PULSE 86; RESP 16; TEMP 37; O2SAT 97
[2022-09-12] MEDS: Enoxaparin 40 MG/0.4 ML SYR SC (17:38)
[2022-09-12] MEDS: cefTRIAXone 1 GM/50 ML BAG IVPB (17:38)
[2022-09-12] MEDS: Normal Saline Flush 10 ML SYR IVP (17:39)
[2022-09-12] MEDS: Mirtazapine 15 MG TAB PO (21:05)
[2022-09-12] MEDS: Gabapentin 300 MG CAP PO (21:05)
[2022-09-12 22:50] VITALS: BP 115/76; PULSE 92; RESP 16; TEMP 37; O2SAT 98
[2022-09-13] MEDS: Letrozole 2.5 MG TAB PO (07:38)
[2022-09-13 07:39] VITALS: BP 114/80; PULSE 96; RESP 16; TEMP 36.1; O2SAT 96
--- NOTE | 2022-09-13 07:57 | W.PM.PROGNOT ---
Date of Service Date of service: 09/13/22 Time of Service: 07:57 Assessment and Plan Assessment and plan (1) Metastatic carcinoma: Status: Acute Assessment and plan: Patient has completed the bowel prep and will under go a Colonoscopy later today for biopsies of pelvic mass. She will be NPO and after her procedure. Subjective Subjective Interval history since last seen: Arrived with patient using the commode. She states the bowel prep is working. Denies any chest pain or SOB. Exam Const General: cooperative and comfortable Orientation: alert and oriented x3 Resp Effort & Inspection: normal respiratory effort Objective Last Vital Signs Temp 36.1 C L 09/13/22 07:39 Pulse 96 H 09/13/22 07:39 Resp 16 09/13/22 07:39 BP 114/80 09/13/22 07:39 Pulse Ox 96 09/13/22 07:39 Time Spent with Patient Time Spent with Patient: <25 minutes Time was spent: preparing to see the patient(eg.review tests)
[2022-09-13 08:32] LABS: Abs Immature Grans 0.06 10^3/uL (0.0-0.06); Absolute Basophil Count 0.05 10^3/uL (0.0-0.2); Absolute Eosinophil Count 0.14 10^3/uL (0.0-0.7); Absolute Lymphocyte Count 1.85 10^3/uL (1.2-3.4); Absolute Monocyte Count 1.16 10^3/uL (0.1-0.8); Absolute Neutrophil Count 12.83 10^3/uL (1.2-6.7); Basophils % 0.3; Eosinophils % 0.9; HCT 35.1 % (36.0-46.0); HGB 11.9 g/dL (11.2-15.7); Immature Grans % 0.4; Lymphocytes % 11.5; MCH 30.9 pg (27.0-33.0); MCHC 33.9 % (32.0-36.0); MCV 91 fL (80-95); MPV 8.8 fL (8.0-11.0); Monocytes % 7.2; Neutrophils % 79.7; Platelet Count 355 10^3/uL (130-400); RBC 3.85 10^6/uL (3.93-5.22); RDW 14.2 % (11.7-14.6); RDW-SD 47.7 fL
[2022-09-13 08:44] LABS: Anion Gap 7.1 mmol/L (3-11); BUN 8 mg/dL (7-18); CO2 27.9 mmol/L (21.0-32.0); CREATININE 0.5 mg/dL (0.55-1.02); Chloride 97 mmol/L (98-107); Glucose 80 mg/dL (74-106); Magnesium 1.7 mg/dL (1.8-2.4); Potassium 4.1 mmol/L (3.5-5.1); Sodium 132 mmol/L (136-145)
[2022-09-13 08:49] LABS: INR 1.2 (0.9-1.1); Prothrombin Time 11.6 sec (9.3-11.0)
--- NOTE | 2022-09-13 09:17 | PDOC.CMPRO ---
- If Service Date Differs Date of service: 09/13/22 Time of Service: 09:17 Care Management Progress Note S/O:Shana was lying in bed when CM met with her. She was pale and admitted that she had had a difficult night with the colonoscopy prep. She stated that at times she was incontinent and she found this upsetting and embarrassing. The prep was not painful however despite the pelvic mass. The procedure is scheduled for 1400. Shana and her daughter feel it would be best if she remain in the hospital overnight and discharge in the morning. A: Shana is a 67 year old woman admitted on 09/11/22 with a pelvic mass and pneumonia P:Anticipate Shana will be discharged home with no new services. She will follow up with Surgery, her PCP and likely specialists at [facility] [place] She will transport via private vehicle with her daughter or brother. CM will continue to support Shana and her discharge planning needs.
--- NOTE | 2022-09-13 10:39 | PGE_ITS ---
Date of Service Date of service: 09/13/22 Time of Service: 10:39 Assessment and Plan Assessment and plan (1) Metastatic carcinoma: Status: Acute Assessment and plan: Patient has completed the bowel prep and had a colonoscopy with biopsies of pelvic mass. We will resume a regular diet post procedure Palliative care consultation completed on 09/12/2022 (2) Pneumonia: Status: Acute Assessment and plan: Patient is treated with ceftriaxone IV, she denies clinical signs of pneumonia but her chest XR still show a diminished opacity to left lung as of 09/12/2022. We will stop the ceftriaxone and monitor WBC 16.10 from 17.14 CBC in AM (3) On deep vein thrombosis (DVT) prophylaxis: Status: Acute Assessment and plan: Patient should be started on Lovenox for DVT prophylaxis (4) Hypomagnesemia: Status: Acute Assessment and plan: Patient is on oral magnesium daily Mg level = 1.7, will give IV mag replacement. Mg level in AM (5) Abdominal ascites: Status: Acute Assessment and plan: Patient was found to have ascites as per CT on 09/11, LFT's were AST 117, ALT 82, ALK 465 with multiple lesions throughout both hepatic lobes which were not present in 2015, consistent with diffuse metastatic lesions in the liver form CT reading . Na is 132. Low sodium can occur in the setting of ascites, patient is asymptomatic at this point but water restriction and diuresis might be considered if she develops symptoms or if the Na depletion progresses. BMP in AM (6) Discharge planning issues: Status: Acute Assessment and plan: Care management will evaluate patient needs upon discharge when medically stable . Ishan was also seen while inpatient by her PCP Dr. Vargas as a palliative wound care specialist. Once patient resume and able to tolerate her diet and feels stronger, she will probably be discharge; probably on 09/14/2022 nor 09/15/[address] Chritsie Subjective Subjective Interval history since last seen: Patient is reports fatigue and leg weakness, dry mouth and diarrhea due to colonoscopy prep, thirst and hunger. patient denies chills, fever,cough, shortness of breath, chest pain abdominal pain She denies nausea, hematochezia or melena, dysuria Exam Narrative Exam Narrative: HEENT: Normocephalic, atraumatic, no adenopathy, dry oral mucous membranes Neuro: Alert and oriented X4 no focal neuro deficit Cardiac: S1, S2, no cardiac murmur, Resp: Clear breath sounds bilaterally GI: RUQ mass felt, granular liver edge felt, non-tender, :voiding yellow clear urine Musk:?push pull upper ext. 5/5, lower ext. 4/5 Skin: dry, intact, no lesions Psych: Calm Objective Last Vital Signs Temp 97.0 F L 09/13/22 07:39 Pulse 96 H 09/13/22 07:39 Resp 16 09/13/22 07:39 BP 114/80 09/13/22 07:39 Pulse Ox 96 09/13/22 07:39 Laboratory Results - last 24 hr 09/13/22 09/13/22 09/13/22 08:25 08:25 08:25 WBC 16.10 H RBC 3.85 L Hgb 11.9 Hct 35.1 L MCV 91 MCH 30.9 MCHC 33.9 RDW 14.2 Plt Count 355 MPV 8.8 Immature Gran % 0.4 Neutrophils % 79.7 Lymphocytes % 11.5 Monocytes % 7.2 Eosinophils % 0.9 Basophils % 0.3 Nucleated RBC % 0.0 Absolute Neutrophils 12.83 H Absolute Lymphocytes 1.85 Absolute Monocytes 1.16 H Absolute Eosinophils 0.14 Absolute Basophils 0.05 PT 11.6 H INR 1.2 H Sodium 132 L Potassium 4.1 Chloride 97 L Carbon Dioxide 27.9 Anion Gap 7.1 BUN 8 Creatinine 0.5 L Est GFR (CKD-EPI 2020) 102.10 Glucose 80 Calcium 9.0 Magnesium 1.7 L Time Spent with Patient Time Spent with Patient: >50 minutes Time was spent: preparing to see the patient(eg.review tests)
[2022-09-13] MEDS: MAGNESIUM SULFATE 2 GM/50 ML BAG IVPB (12:24)
[2022-09-13] MEDS: Normal Saline Flush 10 ML SYR IVP ×2 (12:25→20:26)
--- NOTE | 2022-09-13 13:24 | ANES.PREOP_ITS ---
General Info Date of Service Date Performed: 09/13/22 Height: 5 ft 2 in Weight: 50.126 kg Body Mass Index (BMI): 20.2 Surgical Procedure: Operation Date: 09/13/22 14:20 Proposed Procedure Side Surgeon p Colonoscopy w/Biopsies Forrest Pino MD Meds Allergies and Home Medications Allergies Allergy/AdvReac Type Severity Reaction Status Date / Time No Known Allergies Allergy Unverified 09/11/22 11:56 Home Medication Medication Instructions Recorded acetaminophen 500 mg tablet 1,000 mg PO Q6H PRN 05/22/13 calcium carbonate 600 mg calcium 600 mg PO DAILY 10/24/15 (1,500 mg) tablet cholecalciferol (vitamin D3) 25 1,000 unit PO DAILY 10/24/15 mcg (1,000 unit) tablet nystatin 100,000 unit/gram topical 1 applic topical DAILY PRN rash 09/09/18 cream #15 grams amlodipine 10 mg-benazepril 20 mg 1 cap PO DAILY #90 tab-caps 01/25/22 capsule (Lotrel) atenolol 25 mg tablet See Rx Instructions .Route 01/25/22 .COMPLEX #90 tabs gabapentin 300 mg capsule 300 mg PO DAILY #90 tabs 01/25/22 letrozole 2.5 mg tablet 2.5 mg PO DAILY #90 tabs 01/25/22 ondansetron 8 mg disintegrating 8 mg PO Q12H PRN nausea and 01/25/22 tablet vomiting #30 tabs Current Visit Medications: Current Medications Generic Name Dose Route Start Last Admin Trade Name Freq PRN Reason Stop Dose Admin Acetaminophen 0 mg 09/11/22 16:39 Acetaminophen 325 Mg Tab PO Q4H PRN PRN Albuterol Sulfate 2.5 mg 09/11/22 16:36 Albuterol 2.5 Mg/3 Ml Inh Soln Vial UPD Q2H PRN PRN Dimethicone/Zinc Oxide 0 gm 09/11/22 16:36 Christina Protect Cream 142 Gm Tube TP PRN PRN Dronabinol 2.5 mg 09/12/22 07:30 09/13/22 07:31 Dronabinol 2.5 Mg Cap PO Not Given BID AC WINTER Enoxaparin Sodium 40 mg 09/11/22 18:00 09/12/22 17:38 Enoxaparin 40 Mg/0.4 Ml Syr SC 40 mg Q24H WINTER Administration Gabapentin 300 mg 09/11/22 22:00 09/12/22 21:05 Gabapentin 300 Mg Cap PO 300 mg HS WINTER Administration Ceftriaxone Sodium/Dextrose 1 gm in 50 mls @ 100 mls/hr 09/11/22 18:00 09/12/22 18:10 Rocephin IVPB Infused Q24H IWNTER Infusion Magnesium Sulfate 2 gm in 50 mls @ 25 mls/hr 09/13/22 11:36 09/13/22 12:24 IVPB 09/13/22 13:35 25 mls/hr NOW ONE Administration IV Miscellaneous Supplies 1 each 09/11/22 12:15 Iv Access IV DIRECTED WINTER Letrozole 2.5 mg 09/12/22 08:30 09/13/22 07:38 Letrozole 2.5 Mg Tab PO 2.5 mg DAILY WINTER Administration Magnesium Oxide 400 mg 09/11/22 16:45 09/13/22 07:32 Magnesium Oxide 400 Mg Tab PO Not Given BID WINTER Mirtazapine 15 mg 09/11/22 22:00 09/12/22 21:05 Mirtazapine 15 Mg Tab PO 15 mg HS WINTER Administration Polyethylene Glycol 17 gm 09/11/22 16:39 Polyethylene Glycol 3350 17 Gm Packet PO DAILY PRN PRN Constipation Sodium Chloride 0 ml 09/11/22 12:13 09/13/22 12:25 Normal Saline Flush 10 Ml Syr IVP 20 ml PRN PRN Administration PFSH Active Problems Active Problems: Problem Status Onset Code Palliative care patient Z51.5 Discharge planning issues Z02.9 Unintentional weight loss R63.4 Metastatic carcinoma C79.9 Hyponatremia E87.1 Adenocarcinoma of right breast C50.911 Infiltrating ductal carcinoma of breast 01/21/13 C50.919 Annual physical exam 06/03/17 Z00.00 Essential hypertension 06/30/13 I10 Neuropathy 01/07/14 G62.9 White coat syndrome with hypertension 10/01/17 I10 Surgical History Surgical History Breast, Lumpectomy (~02/2013) Cholecystectomy Reduction mammoplasty (~02/2013) Tobacco Smoking/Tobacco Use Status: Never Second hand exposure: No Alcohol Alcohol Intake: current Alcohol intake frequency: holidays/special occasions only Alcohol type: hard liquor Substance Use Substance use: Never Substance use type: does not use Vital Signs and Lab Results Vital Signs Most Recent Vital Signs in EMR: Most Recent Vital Signs Temp Pulse Resp BP Pulse Ox 36.1 C L 96 H 16 114/80 96 09/13/22 07:39 09/13/22 07:39 09/13/22 07:39 09/13/22 07:39 09/13/22 07:39 Lab Results Result Diagrams: 09/13/22 08:25 09/13/22 08:25 Blood Type / Crossmatch: No Data to Display Complete Blood Count: White Blood Count 16.10 10^3/uL (4.4-10.8) H 09/13/22 08:25 Red Blood Count 3.85 10^6/uL (3.93-5.22) L 09/13/22 08:25 Hemoglobin 11.9 g/dL (11.2-15.7) 09/13/22 08:25 Hematocrit 35.1 % (36.0-46.0) L 09/13/22 08:25 Platelet Count 355 10^3/uL (130-400) 09/13/22 08:25 Complete Metabolic Panel: Sodium 132 mmol/L (136-145) L 09/13/22 08:25 Potassium 4.1 mmol/L (3.5-5.1) 09/13/22 08:25 Chloride 97 mmol/L (98-107) L 09/13/22 08:25 Carbon Dioxide 27.9 mmol/L (21.0-32.0) 09/13/22 08:25 BUN 8 mg/dL (7-18) 09/13/22 08:25 Creatinine 0.5 mg/dL (0.55-1.02) L 09/13/22 08:25 Est GFR (CKD-EPI 2020) 102.10 (mL/min/1.73m2) 09/13/22 08:25 Magnesium 1.7 mg/dL (1.8-2.4) L 09/13/22 08:25 Calcium 9.0 mg/dL (8.5-10.1) 09/13/22 08:25 Albumin 2.8 g/dL (3.4-5.0) L 09/11/22 12:30 Glucose 80 mg/dL (74-106) 09/13/22 08:25 Liver Function Panel: Alanine Aminotransferase (ALT/SGPT) 82 U/L (14-59) H 09/11/22 1 2:30 Aspartate Amino Transf (AST/SGOT) 117 U/L (15-37) H 09/11/22 12 :30 Coagulation Panel: INR International Normalized Ratio 1.2 (0.9-1.1) H 09/13/22 08 :25 Prothrombin Time 11.6 sec (9.3-11.0) H 09/13/22 08:25 Cardiac Panel: Troponin I < 50 ng/L (<or=60) 09/11/22 Arterial Blood Gas: No Data to Display Venous Blood Gas: No Data to Display Pancreas Panel: No Data to Display Thyroid Panel: Thyroid Stimulating Hormone (TSH) 5.63 uIU/mL (0.36-3.74) H 09/11/22 12:30 Infectious Disease: Coronavirus (COVID-19)(PCR) Negative (Negative) 09/11/22 16:50 Coronavirus 2019 Source Nasal/Nares 09/11/22 16:50 Blood Cultures: No Data to Display Toxicology Panel: No Data to Display Anesthesia Assessment and Plan Anesthesia History Personal History: No History of Anesthesia Complications Family History: No Family History of Anesthesia Complications Exercise Tolerance Exercise Tolerance: Metabolic Equivalents>4 Pertinent Negatives Pertinent Negatives: No Symptoms of GERD Cardiac & Pulmonary Exam Cardiac Exam: Normal S1/S2 Heart Sounds Pulmonary Exam: Clear Bilateral Breath Sounds Cardiac and Pulmonary Comment:: Chest 09/12 opleural effusion Implantable Cardiac Device Does patient have a Pacemaker or an ICD?: No Airway Exam Known Difficult Airway: Yes Previous Airway Comments:: Reports diff intubation in past. No issues last surgery Mallampati Class: 3 Mouth Opening: Narrow (< 3cm) Thyromental Distance: Greater than 3 cm Neck Range of Motion: Full ROM Neck Circumference: Normal Teeth Condition: Generalized Poor Dentition (Missing teeth. None loose) ASA Classification ASA Score: ASA 3 Emergency Case?: No NPO Status NPO Status: NPO Clears >2 hours, Solids >8 hours Anesthesia Plan Resuscitation Status: Full Code Anesthesia Technique: General Anesthesia Airway Planned: Natural Airway Monitors Used: Standard Monitors Preoperative Comments:: Very frail appearing.
[2022-09-13] MEDS: Lactated Ringers 1,000 ML 30 ML IV (13:36)
[2022-09-13 13:47] VITALS: BMI 20.2
--- NOTE | 2022-09-13 14:19 | BOWEL_PTH ---
PATIENT: Shana Nuñez LOC: [id number]#:[id number] AGE/SX: 67/F ROOM: 226 RE09/11/[address]: Wilber Jimenes MD : [id number] BED: A DIS: 09/14/2022 SPEC #: [id number] RECD: 09/13/22 18:07 STATUS: MARVIN REQ #: [id number] TOMY: 09/13/22 14:[address]: Wilber Jimenes DEPT: Surgical Specimen RECD BY: Vanessa Bowling ENTERED: 09/13/22 18:08 SP TYPE: Bowel OTHR DR: TIANA Lemus PA Anthony Campbell Cole,MD Mehreen De Luna MD, DC Dirk Barboza, MD Jessenia Farias, HIS Everardo Resendiz, Vesta Smith MD Leung,MD Devorah Newberry,Jerry Pino, MD Baez,Vicki lCinton, DO Tissues: 1 - BIOPSY BOWEL Procedures: GROSS AND MICRO LEVEL 4 IMMUNOPEROXIDASE STAIN Comments: [id number]
--- NOTE | 2022-09-13 14:32 | W.COLOREPORT ---
Date of service: 09/13/22 Time of Service: 14:32 Colonoscopy Report Date of procedure: 09/13/22 Pre-op diagnosis general: Colon cancer Post-op diagnosis procedure note: other (rectal tumor) Procedure: proctoscopy with biopsy Surgeon: Forrest Pino Anesthesia Type: General:No Airway Estimated blood loss (mL): 10 Pathology: other (rectal mass) Complications: None Disposition: floor Indications: Shana is a 67-year-old woman with significant weight loss, fatigue and malaise. She underwent a CAT scan that raise a concern for a pelvic mass, as well as multiple liver abnormalities concerning for metastatic cancer. Prep: GoLYTELY Findings: Near obstructing rectal mass Procedure Description: After placing patient in left lateral decubitus position, monitored anesthetic care was initiated. Next, I performed a digital rectal examination. The anus was normal. There is a mass in the anterior aspect of the rectum. Next, I gently inserted a standard colonoscope into the rectal vault. Proximately 10 cm from the anal verge there was a near obstructing rectal mass. It is fungating. It is erythematous. There appears to be some areas of spotty necrosis. Using a large biopsy forcep, I obtained for specimens for pathology. There was minimal bleeding. Having obtain a tissue sample for diagnosis, at that point, I felt suggesting that it was terminated the procedure. I withdrew the colonoscope. She was allowed awaken from anesthesia without any difficulty.
--- NOTE | 2022-09-13 14:42 | W.ANESPOSTOP ---
Postoperative Evaluation Date, Time and Location Date Performed: 09/13/22 Time Performed: 14:42 Patient Location: Med/Surg Vital Signs Most Recent Imported Vital Signs: Most Recent Vital Signs Temp Pulse Resp BP Pulse Ox 36.1 C L 96 H 16 114/80 96 09/13/22 07:39 09/13/22 07:39 09/13/22 07:39 09/13/22 07:39 09/13/22 07:39 Most Recent Manually Entered Vital Signs: Adult Blood Pressure: 128/78 Heart Rate: 116 Respirations: 14 Oxygen Saturation (%): 98 Temperature (C): 37.1 C Pain Score (0-10 Scale): 0 Pain Score Most Recent Pain Score: Most Recent Pain Score Pain Level 0 09/13/22 07:39 Assessment Mental Status: Awake (Alert & Oriented to Patient Baseline) Airway and Respiratory Function: Patent airway with normal (patient baseline) respiratory exam Cardiovascular Function: Hemodynamically Stable Hydration Status: Adequately Hydrated Nausea & Vomiting: No Nausea or Vomiting Pain: Pt. Denies Any Pain Peripheral Nerve Block: Patient did not receive a nerve block
[2022-09-13 14:45] VITALS: BP 128/78; PULSE 116; RESP 14; TEMPC 37.1; O2SAT 98
[2022-09-13 15:05] VITALS: BP 122/78; PULSE 112; RESP 16; TEMP 37.1; O2SAT 98
--- NOTE | 2022-09-13 16:35 | PGE_ITS ---
Date of Service Date of service: 09/13/22 Time of Service: 16:35 Assessment and Plan Assessment and plan (1) Metastatic carcinoma: Status: Acute Assessment and plan: S/p colonoscopy/biopsies today for the colorectal masses. She does have a significant liver metastatic burden. Oncology referral; already set up with palliative care. (2) Unintentional weight loss: Status: Acute Assessment and plan: Likely due to malignancy. Continue marinol and mirtazapine. (3) Essential hypertension: Status: Chronic Assessment and plan: Not requiring BP medications at this time. F/u as outpatient. (4) Neuropathy: Status: Chronic Assessment and plan: Continue home gabapentin (5) Discharge planning issues: Status: Acute Assessment and plan: Palliative care consulted. Remains full code at this time. Will need an oncology referral on discharge. (6) DVT prophylaxis: Status: Acute Assessment and plan: SC enoxaparin Subjective Subjective Interval history since last seen: Ms Nuñez is s/p Colonoscopy today. She tolerated it well. She is not quite hungry yet, but will consider an ensure shake and some broth. Denies dizziness, chest pain, shortness of breath, nausea, abdominal pain. Exam Narrative Exam Narrative: General: Pleasant pale female who appears tired, AOx3 HEENT: EOMI, dry MM Heart: RRR, no m/r/g Lungs: Diminished breath sounds L base, otherwise CTAB Abdomen: soft, nontender, very minimal fluid wave, nondistended Extremities: no edema BLEs Objective Last Vital Signs Temp 36.1 C L 09/13/22 07:39 Pulse 96 H 09/13/22 07:39 Resp 16 09/13/22 07:39 BP 114/80 09/13/22 07:39 Pulse Ox 96 09/13/22 07:39 Laboratory Results - last 24 hr 09/13/22 09/13/22 09/13/22 08:25 08:25 08:25 WBC 16.10 H RBC 3.85 L Hgb 11.9 Hct 35.1 L MCV 91 MCH 30.9 MCHC 33.9 RDW 14.2 Plt Count 355 MPV 8.8 Immature Gran % 0.4 Neutrophils % 79.7 Lymphocytes % 11.5 Monocytes % 7.2 Eosinophils % 0.9 Basophils % 0.3 Nucleated RBC % 0.0 Absolute Neutrophils 12.83 H Absolute Lymphocytes 1.85 Absolute Monocytes 1.16 H Absolute Eosinophils 0.14 Absolute Basophils 0.05 PT 11.6 H INR 1.2 H Sodium 132 L Potassium 4.1 Chloride 97 L Carbon Dioxide 27.9 Anion Gap 7.1 BUN 8 Creatinine 0.5 L Est GFR (CKD-EPI 2020) 102.10 Glucose 80 Calcium 9.0 Magnesium 1.7 L Time Spent with Patient Time Spent with Patient: 25-34 minutes Time was spent: preparing to see the patient(eg.review tests), obtaining and/or reviewing separately otained hiistory, ordering medications,tests, procedures, referring, communicating with other health day care director, indepentently interpreting results, counseling the patient and care coordination
[2022-09-13] MEDS: Dronabinol 2.5 MG CAP PO (17:30)
[2022-09-13] MEDS: Enoxaparin 40 MG/0.4 ML SYR SC (17:30)
[2022-09-13 20:11] VITALS: BP 106/70; PULSE 94; RESP 19; TEMP 36.6; O2SAT 97
[2022-09-13] MEDS: Gabapentin 300 MG CAP PO (20:25)
[2022-09-13] MEDS: Mirtazapine 15 MG TAB PO (20:25)
[2022-09-13] MEDS: Magnesium Oxide 400 MG TAB PO (20:25)
[2022-09-14 03:34] VITALS: BP 110/68; PULSE 92; RESP 16; TEMP 36.3; O2SAT 97
[2022-09-14 06:19] LABS: Abs Immature Grans 0.04 10^3/uL (0.0-0.06); Absolute Basophil Count 0.04 10^3/uL (0.0-0.2); Absolute Eosinophil Count 0.28 10^3/uL (0.0-0.7); Absolute Lymphocyte Count 1.46 10^3/uL (1.2-3.4); Absolute Monocyte Count 1.07 10^3/uL (0.1-0.8); Absolute Neutrophil Count 9.71 10^3/uL (1.2-6.7); Basophils % 0.3; Eosinophils % 2.2; HCT 34.5 % (36.0-46.0); HGB 11.7 g/dL (11.2-15.7); Immature Grans % 0.3; Lymphocytes % 11.6; MCHC 33.9 % (32.0-36.0); MCV 92 fL (80-95); MPV 9.1 fL (8.0-11.0); Monocytes % 8.5; Neutrophils % 77.1; Platelet Count 342 10^3/uL (130-400); RBC 3.77 10^6/uL (3.93-5.22); RDW 14.2 % (11.7-14.6); RDW-SD 47.6 fL
[2022-09-14 06:44] LABS: Anion Gap 7.7 mmol/L (3-11); BUN 7 mg/dL (7-18); CO2 26.3 mmol/L (21.0-32.0); CREATININE 0.4 mg/dL (0.55-1.02); Calcium 8.6 mg/dL (8.5-10.1); Chloride 97 mmol/L (98-107); Estimated GFR 107.74 (mL/min/1.73m2); Glucose 83 mg/dL (74-106); Magnesium 2.1 mg/dL (1.8-2.4); Potassium 3.1 mmol/L (3.5-5.1); Sodium 131 mmol/L (136-145)
[2022-09-14 07:49] VITALS: BP 148/86; PULSE 91; RESP 16; TEMP 37; O2SAT 97
[2022-09-14] MEDS: Magnesium Oxide 400 MG TAB PO (07:58)
[2022-09-14] MEDS: Letrozole 2.5 MG TAB PO (07:58)
[2022-09-14] MEDS: Dronabinol 2.5 MG CAP PO (07:58)
--- NOTE | 2022-09-14 08:51 | PDOC.CMDIS ---
- If Service Date Differs Date of service: 09/14/22 Time of Service: 08:51 LACE Index Scoring Tool - Questions: Length of Stay (in days): 3 Acuity (Admit via E.D.?): Yes Comorbidities: Metastatic Solid Tumor E.D. Visits: 1 - Answers: Total Score: 12 Risk of Readmission: High Risk Care Management Discharge Reason for Hospitalization: pelvic mass Discharge Plan: Shana will be discharged home with no new services. She will follow up with Surgery, her PCP and likely Oncology at [facility]. She will transport via private vehicle with her daughter. Patient/Family Education Needs: Review of discharge instructions, limitations, activity, follow up plan, discuss Ask Me Three
[2022-09-14] MEDS: Potassium Chloride 20 MEQ TABCR 40 MEQ PO (10:17)
--- NOTE | 2022-09-14 11:58 | W.PM.DS.N ---
Date of service: 09/14/22 Time of Service: 11:58 DS: Diagnosis Discharge Diagnosis (1) Metastatic carcinoma: Status: Acute (2) Pneumonia: Status: Acute (3) Hypokalemia: Status: Acute (4) Hypomagnesemia: Status: Acute (5) Abdominal ascites: Status: Acute (6) Malnutrition: Status: Acute (7) Unintentional weight loss: Status: Acute Discharge Plan Disposition Patient Disposition: Home Condition: Stable Discharge Details Reason For Visit: Pneumonia,Pelvic mass Admit Date/Time: 09/11/22 16:36 Admit Provider: Wilber Jimenes Attending Provider: Wilber Jimenes Primary Care Provider: Mehreen Vagras Hospital Course Hospital Course: Ms Nuñez is a 67 year old female with PMHx of adenocarcinoma of breast cancer s/p lumpectomy/chemo/XRT (2012), as well as h/o HTN, neuropathy, who was admitted to [facility] hospitalist service on 09/11/22 with unintentional weight loss of >80 lbs, malaise and generalized weakness. Her ER workup showed a leucocytosis of 19 and a sodium of 130. Her Imaging revealed a suspected pneumonia in addition to several colorectal masses and multiple lesions throughout the liver c/w metastatic disease The patient was started on empiric ceftriaxone for pneumonia and was evaluated by general surgery, who performed a colonoscopy on 09/13/22. The patient was hypokalemic after her bowel prep - this was repleted and will need to be followed up in 1 week. The patient met with palliative care on this admission. She is known to Dr Vargas, also her PCP. The patient is full code and is being referred to oncology and GI at [facility] for further evaluation and assessment of prognosis/treatment. She was started on dronabinol and mirtazapine on this admission to help boost her appetite given her anorexia. She met with nutrition. She is recommended to drink ensure plus shake with breakfast and lunch in addition to eating dinner and to weigh herself weekly. She may follow up with nutrition PRN. She is medically stable for discharge home today. Care for patient in addition to completion of her discharge summary on day of discharge took 45 minutes. Home Meds and New Rx's Prescriptions: Continued nystatin 100,000 unit/gram cream 1 applic Topical DAILY PRN (Reason: rash) Qty: 15 4RF Hold Instructions: Home Medication placed on hold at Doctor's office Rx Instructions: pt will call when needed letrozole 2.5 mg tablet 2.5 mg PO DAILY Qty: 90 4RF Hold Instructions: Home Medication placed on hold at Doctor's office calcium carbonate 600 MG tablet 600 mg PO DAILY Label Comments: unsure of mg 10/24/15 AT cholecalciferol (vitamin D3) 1,000 UNIT tablet 1,000 unit PO DAILY Label Comments: unsure of mg Changed acetaminophen 500 MG tablet 500 mg PO Q6H PRN Qty: 30 0RF Rx Instructions: Do not exceed 2000 mg daily (2 grams or 4 doses) Discontinued amlodipine-benazepril [Lotrel] 10-20 mg capsule 1 cap PO DAILY Qty: 90 4RF gabapentin 300 mg capsule 300 mg PO DAILY Qty: 90 12RF No Action atenolol 25 mg tablet See Rx Instructions .ROUTE .COMPLEX Qty: 90 4RF Dose Instruction: TAKE ONE TABLET BY MOUTH DAILY Rx Instructions: TAKE ONE TABLET BY MOUTH DAILY dronabinol 2.5 mg capsule 2.5 mg PO BID AC Qty: 60 0RF gabapentin 300 mg capsule 300 mg PO HS Qty: 90 12RF magnesium oxide 400 mg (241.3 mg magnesium) tablet 400 mg PO DAILY Qty: 30 6RF mirtazapine 15 mg tablet 15 mg PO HS Qty: 90 5RF ondansetron 8 mg tablet,disintegrating 8 mg PO Q12H PRN (Reason: nausea and vomiting) Qty: 90 3RF potassium chloride 10 mEq tablet extended release 40 meq PO ONCE Qty: 4 0RF Discharge Instructions Instructions: Bacterial Pneumonia (ED), Ascites (DC), Cancer Cachexia (GEN) Additional Instructions: Follow up with your PCP, with GI and with Oncology. Return to the hospital with any fever, bleeding, chest pain, or shortness of breath. Bloodwork in 1 week - results to PCP. Stand Alone Forms: Nursing Discharge Form Referrals: GASTROENTEROLOGY,[facility] [OTHER] - (Referral sent. Office will call you will appointment. Newly dxd pelvic mass; likely colorectal in origin ) HEMATOLOGY/ONC,[facility] [OTHER] - (Referral sent offive with call you with appointment. metastatic cancer, rectal masses with mets to liver; lung nodules also concerning for metastatic disease) Mehreen Vargas MD, DC [Primary Care Provider] - 02/02/23 11:20 am Activity:: Activity as Tolerated Equipment/Supplies:: No Equipment Needed Diet:: As Tolerated Discharge Orders Discharge Orders: Discharge Order (Routine); Ordered 09/14/22 Ordered By: Isa Christie Other Ambulatory Orders: Basic Metabolic Panel (Routine) Timeframe: 20220920 Facility: [facility] - Location: Laboratory Outpatient - [facility] Ordered By: Isa Christie Magnesium (Routine) Timeframe: 20220920 Facility: [facility] - Location: Laboratory Outpatient - [facility] Ordered By: Isa Christie Discharge Data Discharge Date/Time-TO BE ENTERED AT DEPARTURE: 09/14/22 13:50 DS: Summary Time Spent with Patient providing and/or coordinating discharge services: Greater than 30 minutes Status at Discharge Functional status at discharge: independent ambulation Overall status at discharge: patient is not back to baseline Mental Status: mental status grossly normal Speech and Movement: speech and movement normal Mood: congruent mood Affect: normal affect Exam Narrative Exam Narrative: General: Pleasant pale female who appears tired, AOx3 HEENT: EOMI, dry MM Heart: RRR, no m/r/g Lungs: Diminished breath sounds L base, otherwise CTAB Abdomen: soft, nontender, very minimal fluid wave, nondistended Extremities: no edema BLEs Psych Mental Status: mental status grossly normal Speech and Movement: speech and movement normal Mood: congruent mood Affect: normal affect DS: Data Vitals/I&O Vitals and I&O: Vital Signs Temperature 37 C 09/14/22 07:49 Temperature Source Tympanic 09/14/22 07:49 Pulse 91 H 09/14/22 07:49 Pulse Rhythm Regular 09/14/22 07:10 Respiratory Rate 16 09/14/22 07:49 Respiratory Effort Non-Labored 09/14/22 07:10 Respiratory Depth Normal 09/14/22 07:10 Respiratory Pattern Normal 09/14/22 07:10 Blood Pressure 148/86 H 09/14/22 07:49 Blood Pressure Mean 69 09/11/22 14:00 Pulse Oximetry 97 09/14/22 07:49 Oxygen Delivery Method Room Air 09/14/22 07:49 Oxygen Flow Rate 0 09/14/22 07:49 Pain Level 0 09/14/22 07:49 Intake & Output 09/13/22 09/13/22 09/14/22 11:59 23:59 11:59 Intake Total 750.5 / 750.5 270 / 270 Output Total 150 / 150 Balance 750.5 / 750.5 120 / 120 Weight 50.126 kg Intake: IV 500.5 / 500.5 20 / 20 Oral 250 / 250 250 / 250 Output: Urine 150 / 150 Other: Urine Color Yellow Pale Urine Appearance Clear Clear Urine Odor Normal None Comment unable to assess, mixed with stool. mixed with stool Stool Size Large Small Stool Characteristics Liquid Soft Brown Brown Voiding Methods Bedside Commode Toilet Toilet Data Completed and Pending Completed studies during hospitalization [Text1]: CXR: Bandlike infiltrate mid left lung field.? No obvious pleural effusions. CT abdomen/pelvis w/ contrast: 1. Large abnormal appearing pelvic mass with local spread and with multiple metastatic lesions throughout the liver evident as well as some ascites in the abdomen and pelvis.? Probable colorectal origin.? Regional and distant metastases, including nodules in the partially visualized lung bases which are probably metastatic. 2. Kidneys appear unremarkable and there is no hydronephrosis nor hydroureter at this time.. Labs on day of discharge: Labs from last 24 hours 09/14/22 09/14/22 05:52 05:52 WBC 12.60 H RBC 3.77 L Hgb 11.7 Hct 34.5 L MCV 92 MCH 31.0 MCHC 33.9 RDW 14.2 Plt Count 342 MPV 9.1 Immature Gran % 0.3 Neutrophils % 77.1 Lymphocytes % 11.6 Monocytes % 8.5 Eosinophils % 2.2 Basophils % 0.3 Nucleated RBC % 0.0 Absolute Neutrophils 9.71 H Absolute Lymphocytes 1.46 Absolute Monocytes 1.07 H Absolute Eosinophils 0.28 Absolute Basophils 0.04 Sodium 131 L Potassium 3.1 L D Chloride 97 L Carbon Dioxide 26.3 Anion Gap 7.7 BUN 7 Creatinine 0.4 L Est GFR (CKD-EPI 2020) 107.74 Glucose 83 Calcium 8.6 Magnesium 2.1 PFSH All Active Problems (Updated 09/14/22 @ 11:59 by Isa Christie MD) Malnutrition (Acute) Hypokalemia (Acute) DVT prophylaxis (Acute) Abdominal ascites (Acute) Hypomagnesemia (Acute) Pneumonia (Acute) Discharge planning issues (Acute) On deep vein thrombosis (DVT) prophylaxis (Acute) Palliative care patient (Acute) Discharge planning issues (Acute) Unintentional weight loss (Acute) Metastatic carcinoma (Acute) Hyponatremia (Acute) Adenocarcinoma of right breast (Chronic) 09/23/15; [facility]; ER,GA POSITIVE Infiltrating ductal carcinoma of breast (Chronic 01/21/13) [facility]; RIGHT BREAST lumpectomy,chemo,radiation Annual physical exam (Acute 06/03/17) Essential hypertension (Chronic 06/30/13) 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 White coat syndrome with hypertension (Chronic 10/01/17) Surgical History Breast, Lumpectomy (~02/2013) Cholecystectomy Reduction mammoplasty (~02/2013) Family History Mother , AGE 78 Cervical cancer Father , AGE 67 Hyperlipidemia PTSD (post-traumatic stress disorder) Hypertension Sister Hyperlipidemia Hypertension Brother , AGE 64 Essential hypertension Bladder cancer Alcohol abuse Substance abuse Brother Heart disease Alcohol abuse Substance abuse Hypertension Brother Substance abuse Diabetes Hypertension Alcohol abuse Depression Maternal Grandfather , AGE 78 Heart disease Paternal Grandfather , AGE 75 Heart disease Maternal Grandmother , AGE 85 No problems noted. Paternal Grandmother , AGE 81 No problems noted. Daughter Melanoma Hypertension Social History Smoking/Tobacco Use Status: Never Second Hand Exposure: No Smoking risk assessment performed?: Yes Alcohol Intake: current Alcohol Intake frequency: holidays/special occasions only Alcohol type: hard liquor Drug use: Never Substance use type: does not use Caregiver/Support person: No Household members: none Housing: house Pets and animals: No Sexually active: Yes Do you think of yourself as: straight/heterosexual Current gender identity: female Duration: 30-45 minutes/day Frequency: 3-4 times per week Clarissa/Sabianist: Pentecostal Special clarissa needs: No Do you feel safe at home: Yes Do you feel safe in your relationship?: Yes Time Spent with Patient Time Spent with Patient: 45-69 minutes Time was spent: preparing to see the patient(eg.review tests), obtaining and/or reviewing separately otained hiistory, ordering medications,tests, procedures, referring, communicating with other health day care worker, indepentently interpreting results, counseling the patient and care coordination
--- NOTE | 2022-09-14 13:33 | W.NUTCONSULT ---
Date of service: 09/14/22 Time of Service: 13:33 Nutritional Consult ASSESSMENT: Met with Shana and her daughter prior to discharge. Admitted with malnutrition, metastatic colon cancer. Per Shana, she has lost 80 lbs in last year, she stopped eating solids from November 2021-March 2022 secondary to grief and poor appetite. Is planning on pallative treatment as outpatient. She reports that she typically only eats once daily- in evening. No food insecurity noted. Estimated Needs: [id number] kcal, 50-60 g protein. NUTRITIONAL DIAGNOSIS: unintentional significant weight loss related to poor intake as evidenced by 80 lbs weight loss in last year. INTERVENTION: Encouraged Shana to drink ensure plus shake at breakfast and lunch and completing home made dinner meal. Recommend she weigh herself weekly and to follow up with singer songwriter as OP if weight loss continues. MONITORING AND EVALUATION: Shana to follow up as needed Time Spent in Nutritional Counseling and Treatment: 15
== END 2022-09-14 13:50 | disposition home or self-care (01) | DRG 374 ==
LOC: ER 17:05 → MS 17:22
PROVIDERS: Internal Medicine; Surgery; Admitting Provider Family Medicine; Emergency Provider Emergency Medicine; PCP Family Medicine; Visit Provider Family Medicine
PROC: 0DJD8ZZ Inspection of Lower Intestinal Tract, Via Natural or Artificial Opening Endoscopic (ICD-10-PCS; CPT 45378; principal; 2022-09-13 14:15)
DX: C20 Malignant neoplasm of rectum (principal); J18.9 Pneumonia, unspecified organism; C78.01 Secondary malignant neoplasm of right lung; C78.7 Secondary malignant neoplasm of liver and intrahepatic bile duct; E87.1 Hypo-osmolality and hyponatremia; C78.02 Secondary malignant neoplasm of left lung; R18.8 Other ascites; E46 Unspecified protein-calorie malnutrition; R63.4 Abnormal weight loss; Z85.3 Personal history of malignant neoplasm of breast; I10 Essential (primary) hypertension; G62.0 Drug-induced polyneuropathy; T45.1X5A Adverse effect of antineoplastic and immunosuppressive drugs, initial encounter; E83.42 Hypomagnesemia; E87.6 Hypokalemia; Z68.20 Body mass index [BMI] 20.0-20.9, adult
CPT/HCPCS: 45331; 36415; 80048; 80053; 87635; 88305; 93005; 96360; 99285; J1650; 71045; 71046; 74177; 81003; 83735; 84439; 84443; 84484; 85025; 85610; 88361; 93010; 99222; 99232; 99239; J0696; J3490

== ENCOUNTER 2022-09-21 01:19 | Outpatient (CLI) | payer BC, SELFPAY ==
[2022-09-21 12:37] LABS: Anion Gap 6.3 mmol/L (3-11); BUN 11 mg/dL (7-18); CO2 30.7 mmol/L (21.0-32.0); CREATININE 0.7 mg/dL (0.55-1.02); Calcium 9.2 mg/dL (8.5-10.1); Chloride 97 mmol/L (98-107); Estimated GFR 94.15 (mL/min/1.73m2); Glucose 98 mg/dL (74-106); Magnesium 2.2 mg/dL (1.8-2.4); Potassium 4.4 mmol/L (3.5-5.1); Sodium 134 mmol/L (136-145)
== END 2022-09-21 01:20 | disposition home or self-care (01) ==
LOC: LOS 01:20
PROVIDERS: PCP Family Medicine; Visit Provider Internal Medicine
DX: E83.42 Hypomagnesemia (principal); E87.6 Hypokalemia
CPT/HCPCS: 36415; 80048; 83735

== ENCOUNTER 2022-10-09 18:39 | Inpatient (IN) | payer BC, MEDICARE, SELFPAY ==
[2022-10-09] VITALS (38 sets, daily range): BP systolic 87–97; BP diastolic 53–63; PULSE 0–96; RESP 0–25; TEMP 36.4; O2SAT 89–98
--- NOTE | 2022-10-09 19:00 | RT.EKG_ITS ---
APPROVED REPORT Exam: Resting ECG Reason for Exam: abd pain over 45 years Patient Location: E HR:95 bpm ECG Measurements Heart Rate 95 AXIS SC 157 P 42 QRSd 72 QRS -17 QT 356 T 72 QTc 448 Conclusion Sinus rhythm...normal P axis, V-rate 60- 99 Low voltage, extremity leads...all extremity leads <0.5mV Narrow complex normal sinus rhythm at a rate of 95. Left axis deviation no signs of LVH based on vol tage criteria. Low voltage all leads appear similar to prior dated last month. No ST segment abnorm alities. No T wave inversions.
--- NOTE | 2022-10-09 19:31 | W.EDPROG ---
Date of service: 10/09/22 Time of Service: 19:32 Medical Decision Making This patient arrives at the end of my shift and I started her evaluation. In brief she is a 67-year-old female with recent diagnosis of invasive moderately differentiated adenocarcinoma secondary to tissue diagnosis from a colonoscopy showing near obstructive 10 cm rectal mass. This reportedly occurred in the background of a past medical history significant for adenocarcinoma of the right breast status post right-sided lumpectomy in 2012 with subsequent 10 years of letrozole. She also has a history of hypertension neuropathy and arthritis. Oncology [place] [facility] [place] diagnosed her with what appears to be metastatic rectal cancer. She continues to have weight loss. She is currently on chemotherapy with FOLFOX through a right chest wall port in place. She arrived hypotensive with a blood pressure that lower than prior was slightly. She complains of no shortness of breath. Her right chest wall site appears well with no significant erythema. She did endorse some urinary frequency and some cramping lower abdominal pain. Pain certainly could be from her colonic mass so we will obtain CT scan to assess for any obstructive abnormalities or any signs of abscess. We will sign patient out to the oncoming overnight provider. Given that she was mildly hypothermic and her heart rate was above 90 with a soft blood pressure I am concerned for sepsis. Given her immunocompromised state, will treat empirically with piperacillin/tazobactam and vancomycin and draw 2 sets of blood cultures and order a lactate. Given FOLFOX hyponatremia is also certainly a possible cause of weakness. She began her most recent infusion 4 days ago and continued at home up until 2 days ago. She has follow-up with [place] [facility] [place]. Discharge Plan Discharge Details Chief Complaint: Abd Prob Primary Care Provider: Mehreen Vargas ED Provider: Provider,Temporary Home Meds and New Rx's Prescriptions: No Action nystatin 100,000 unit/gram cream 1 applic Topical DAILY PRN (Reason: rash) Qty: 15 4RF Hold Instructions: Home Medication placed on hold at Doctor's office Rx Instructions: pt will call when needed letrozole 2.5 mg tablet 2.5 mg PO DAILY Qty: 90 4RF Hold Instructions: Home Medication placed on hold at Doctor's office atenolol 25 mg tablet See Rx Instructions .ROUTE .COMPLEX Qty: 90 4RF Dose Instruction: TAKE ONE TABLET BY MOUTH DAILY Rx Instructions: TAKE ONE TABLET BY MOUTH DAILY dronabinol 2.5 mg capsule 2.5 mg PO BID AC Qty: 60 0RF gabapentin 300 mg capsule 300 mg PO HS Qty: 90 12RF magnesium oxide 400 mg (241.3 mg magnesium) tablet 400 mg PO DAILY Qty: 30 6RF mirtazapine 15 mg tablet 15 mg PO HS Qty: 90 5RF potassium chloride 10 mEq tablet extended release 40 meq PO ONCE Qty: 4 0RF calcium carbonate 600 MG tablet 600 mg PO DAILY Patient Comments: unsure of mg 10/24/15 AT cholecalciferol (vitamin D3) 1,000 UNIT tablet 1,000 unit PO DAILY Patient Comments: unsure of mg ondansetron 8 mg tablet,disintegrating 8 mg PO Q12H PRN (Reason: nausea and vomiting) Qty: 90 3RF acetaminophen 500 MG tablet 500 mg PO Q6H PRN Qty: 30 0RF Rx Instructions: Do not exceed 2000 mg daily (2 grams or 4 doses)
--- NOTE | 2022-10-09 19:37 | DI.CT_ITS ---
Exam(s) CT CHEST/ABD/PEL W EXAM: CT CHEST/ABD/PEL W CLINICAL HISTORY: Lower abdominal pain TECHNIQUE: Imaging Protocol: Axial computed tomography images with coronal and sagittal reformatted images were created and reviewed CONTRAST MATERIAL: Intravenous: Omnipaque 350 contrast volume:100 mL Oral: No COMPARISON: CT CT ABDOMEN PELVIS W from 09/11/2022 FINDINGS: CHEST: Tracheobronchial tree: Patent where visualized. Pulmonary parenchyma: There are multiple pulmonary nodules present. Given the findings in the abdomen and pelvis, this is most consistent with metastatic disease. There is a moderate right and a large l eft pleural effusion with subjacent infiltrates which may represent atelectasis or pneumonia. There i s an area of consolidation in the left lingula. Visualized thyroid gland: There are several hypodense thyroid nodules. The largest measures 6 mm. No follow-up is recommended. Mediastinum and [place]: There is prominent thoracic adenopathy. Mediastinal and hilar adenopathy is pre sent. The largest lymph node is in the AP window measures 2.3 x 1.8 cm. There is a hiatal hernia pres ent. Pleura: There is no pneumothorax. Heart: The heart is not dilated. Coronary artery calcifications are present. No pericardial effusion. Pulmonary arteries: There is a filling defect in a branch of the pulmonary arteries to the left lower lobe consistent with a pulmonary embolus. There is no evidence of right heart strain. Aorta: Thoracic aorta non-dilated. Atherosclerosis is present. No evidence of dissection. Lymph nodes: No axillary adenopathy is seen Tubes, Catheters, and Lines: The patient does have a [id number] catheter in place. Soft tissues: There is skin thickening and soft tissue edema in the chest wall. Bones:Within normal limits for the patient's age. There is an area of sclerosis involving the verteb ral body and posterior elements of the T10 vertebra suggestive of metastatic disease. There is also p eriosteal reaction involving the lateral aspect of the 10th rib which may be pathologic. ABDOMEN: Liver: There are numerous hepatic masses consistent with metastatic disease. Portal, Superior Mesenteric, and Splenic Veins: There is thrombus seen in the left portal vein. The r ight portal vein and superior mesenteric veins are patent. Gallbladder and Biliary Tract: Status post cholecystectomy. No biliary ductal dilatation. Pancreas: There is pancreatic atrophy present. There is a 1.2 cm hypodense lesion in the tail of the pancreas. There is a 0.9 cm hypodense lesion seen in the uncinate process. Spleen: There are hypodensities again seen in the spleen. The largest measures 1.4 cm. Adrenals: There is a 0.6 cm right adrenal nodule. There are left adrenal nodules measuring up to 1.24 cm. Kidneys: Normal size, contour and axis. No radiodense stones or obstructive uropathy. There are few t iny hypodensities in the kidneys. They are too small for further characterization but likely reflect small cysts. No follow-up is recommended. Abdominal Aorta: Abdominal portion non-dilated. Atherosclerosis is present. Bowel: There is a mass at the colorectal junction measuring at least 9 cm in length. No evidence of a ppendicitis. There are dilated small bowel loops in the mid abdomen concerning for obstruction. Peritoneal Cavity: Masses are seen along the anterior abdominal wall and in the mesentery consistent with metastatic disease. There is a moderate amount of abdominal ascites. No free air. There is agai n seen a soft tissue mass seen in the right pelvis measuring 3.1 x 4.3 cm most suggestive of metastat ic disease. Lymph Nodes: Mildly enlarged retroperitoneal lymph nodes are present. Bones: Within normal limits for the patient's age. Soft Tissues: There is diffuse edema in the abdominal wall. PELVIS: Bladder: Symmetric distention, no gross wall thickening. Reproductive Organs: Unremarkable as visualized. Lymph Nodes: Within normal limits. Bones: Within normal limits. IMPRESSION: 1. Pelvic mass involving the colorectal junction most consistent with carcinoma. 2. Progression of extensive metastatic disease involving the lungs, liver and adrenal glands. 3. Masses within the abdominal cavity most consistent with peritoneal metastatic disease. 4. Progression of soft tissue metastases throughout the abdomen and pelvis. 5. Diffuse anasarca. 6. Sclerotic lesion involving the T10 vertebra suspicious for metastatic involvement. Question of a p athologic fracture involving the left 10th rib. 7. Pulmonary embolism in a branch of the pulmonary artery to the left lower lobe. No evidence of righ t heart strain. 8. Bilateral pleural effusions with subjacent atelectasis or pneumonia. RADIATION DOSE DELIVERED: 1,656.53mGy.cm Total DLP DATA REPOSITORY: All CT scans at this facility are submitted to the National Radiology Data Registry (NRDR) Dose Index Registry (DIR) with the [employer] (ACR). RADIATION OPTIMIZATION: All CT scans at this facility use at least one of these dose optimization te chniques: automated exposure control; mA and/or kV adjustment per patient size (includes targeted exa ms where dose is matched to clinical indication); or iterative reconstruction.
[2022-10-09 20:04] LABS: Lactate 4.3 mmol/L (0.6-1.4)
[2022-10-09 20:07] LABS: Abs Immature Grans 0.03 10^3/uL (0.0-0.06); Absolute Basophil Count 0.06 10^3/uL (0.0-0.2); Absolute Eosinophil Count 0.02 10^3/uL (0.0-0.7); Absolute Lymphocyte Count 0.67 10^3/uL (1.2-3.4); Absolute Monocyte Count 0.11 10^3/uL (0.1-0.8); Absolute Neutrophil Count 8.21 10^3/uL (1.2-6.7); Basophils % 0.7; Eosinophils % 0.2; HCT 40.3 % (36.0-46.0); HGB 13.9 g/dL (11.2-15.7); Immature Grans % 0.3; Lymphocytes % 7.4; MCHC 34.5 % (32.0-36.0); MCV 90 fL (80-95); MPV 10.7 fL (8.0-11.0); Monocytes % 1.2; Neutrophils % 90.2; Nucleated RBC 0.2 % (0.0-0.3); Platelet Count 169 10^3/uL (130-400); RBC 4.48 10^6/uL (3.93-5.22); RDW 17.2 % (11.7-14.6); RDW-SD 56.4 fL
[2022-10-09] MEDS: Normal Saline 1,000 ML 1000 ML IV (20:14)
[2022-10-09] MEDS: PIPERACILLIN/TAZO 4.5 GM in Normal Saline 100 ML IVPB (20:15)
--- NOTE | 2022-10-09 20:15 | ED.GENADUL_ITS ---
Discharge Plan Disposition Patient Disposition: Admit to [facility] Condition: Serious Discharge Details Clinical Impression: Metastatic carcinoma, Hyponatremia, Pulmonary embolism, Small bowel obstruction Primary Care Provider: Mehreen Vargas ED Provider: Jayden Lawler Home Meds and New Rx's Prescriptions: No Action nystatin 100,000 unit/gram cream 1 applic Topical DAILY PRN (Reason: rash) Qty: 15 4RF Hold Instructions: Home Medication placed on hold at Doctor's office Rx Instructions: pt will call when needed letrozole 2.5 mg tablet 2.5 mg PO DAILY Qty: 90 4RF Hold Instructions: Home Medication placed on hold at Doctor's office Patient Comments: discontinued by [facility] Hospitalist atenolol 25 mg tablet See Rx Instructions .ROUTE .COMPLEX Qty: 90 4RF Dose Instruction: TAKE ONE TABLET BY MOUTH DAILY Rx Instructions: TAKE ONE TABLET BY MOUTH DAILY dronabinol 2.5 mg capsule 2.5 mg PO BID AC Qty: 60 0RF gabapentin 300 mg capsule 300 mg PO HS Qty: 90 12RF Patient Comments: not taken 4-5 nights magnesium oxide 400 mg (241.3 mg magnesium) tablet 400 mg PO DAILY Qty: 30 6RF Patient Comments: not taking at home mirtazapine 15 mg tablet 15 mg PO HS Qty: 90 5RF potassium chloride 10 mEq tablet extended release 40 meq PO ONCE Qty: 4 0RF Patient Comments: not taking at home calcium carbonate 600 MG tablet 600 mg PO DAILY Patient Comments: unsure of mg 10/24/15 AT cholecalciferol (vitamin D3) 1,000 UNIT tablet 1,000 unit PO DAILY Patient Comments: unsure of mg ondansetron 8 mg tablet,disintegrating 8 mg PO Q12H PRN (Reason: nausea and vomiting) Qty: 90 3RF acetaminophen 500 MG tablet 500 mg PO Q6H PRN Qty: 30 0RF Rx Instructions: Do not exceed 2000 mg daily (2 grams or 4 doses) prochlorperazine maleate 10 mg tablet 10 mg PO PRN PRN Patient Comments: TAKE ONE TABLET BY MOUTH EVERY 6 HOURS NEEDED FOR NAUSEA Medical Decision Making This is a 67-year-old female who presents from home with her daughter. She describes the fairly rapid onset approximately 2 PM of nausea and bloating in her abdomen. She is recently diagnosed in August with what her daughter states is now stage IV metastatic colorectal adenocarcinoma. This weekend she finished her first 46-hour infusion of FOLFOX, her chemotherapeutic. She was initially seen by Dr. Beckett after arriving slightly hypotensive. She is afebrile. He had empirically ordered blood cultures, 1 L of fluid and broad-spectrum antibiotics. She is also referred for imaging studies. On my examination she is cachectic and does demonstrate left sided abdominal pain. Laboratories will note a white blood cell count of 9, hematocrit 40, platelets 169. Lactic acid elevated 4.3. She has hyponatremia with sodium 130, potassium 4.4, chloride 96, bicarb 23, BUN 31 and creatinine 0.8. Total bili is elevated at 3.0. AST 106, ALT 84. Albumin is 2.0. Screening virus panel negative. Imaging: Patient has advancing metastatic cancer now with metastases to lung, liver, pancreas, adrenal glands, mesentery. There is evidence of a left lower lobe PE. There are dilated small bowel loops with possible obstruction and extensive mass present in the distal sigmoid colon. Patient and her daughter state to me that she would benefit from palliative care consult tomorrow as Dr. Vargas is her primary. The patient at this point is hesitant to pursue aggressive and invasive procedures. She would currently remain a full code but would not want prolonged life support. Case was discussed with and patient seen by Dr. Crane who will admit. [facility] General Mode of arrival: ambulatory . Date/Time Provider Initiated Documentation: 10/09/22 18:45 . Limitations to Documentation: no limitations . Information obtained by: patient and family . History of Present Illness 67 year old F presents to the emergency department with the chief complaint of Nausea, bloating, described as moderate, Quality is described as dull, and is localized to the abdomen. Patient reports no radiation. Patient started experiencing this hour(s) and it has been intermittent. No relieving factors improve symptom(s), No exacerbating factors reported . Patient notes weakness; denies chest pain, fever/chills, shortness of breath and syncope. Patient did receive the following treatments prior to arrival, other (Zofran and 500 mg acetaminophen) Related Data Home Medications Medication Instructions Recorded Confirmed calcium carbonate 600 mg calcium 600 mg PO DAILY 10/24/15 10/09/22 (1,500 mg) tablet cholecalciferol (vitamin D3) 25 1,000 unit PO DAILY 10/24/15 10/09/22 mcg (1,000 unit) tablet nystatin 100,000 unit/gram topical 1 applic topical DAILY PRN rash 09/09/18 10/09/22 cream #15 grams letrozole 2.5 mg tablet 2.5 mg PO DAILY #90 tabs 01/25/22 10/09/22 acetaminophen 500 mg tablet 500 mg PO Q6H PRN #30 tab-caps 09/14/22 10/09/22 atenolol 25 mg tablet See Rx Instructions .Route 09/14/22 10/09/22 .COMPLEX #90 tabs dronabinol 2.5 mg capsule 2.5 mg PO BID AC #60 caps 09/14/22 10/09/22 gabapentin 300 mg capsule 300 mg PO HS #90 tabs 09/14/22 10/09/22 magnesium oxide 400 mg (241.3 mg 400 mg PO DAILY #30 tabs 09/14/22 10/09/22 magnesium) tablet mirtazapine 15 mg tablet 15 mg PO HS #90 tabs 09/14/22 10/09/22 potassium chloride 10 mEq 40 meq PO ONCE #4 tabs 09/14/22 10/09/22 tablet,extended release ondansetron 8 mg disintegrating 8 mg PO Q12H PRN nausea and 10/02/22 10/09/22 tablet vomiting #90 tabs prochlorperazine maleate 10 mg 10 mg PO PRN PRN 10/09/22 10/09/22 tablet Previous Rx's Medication Instructions Recorded nystatin 100,000 unit/gram topical 1 applic topical DAILY PRN rash 09/09/18 cream #15 grams letrozole 2.5 mg tablet 2.5 mg PO DAILY #90 tabs 01/25/22 acetaminophen 500 mg tablet 500 mg PO Q6H PRN #30 tab-caps 09/14/22 atenolol 25 mg tablet See Rx Instructions .Route 09/14/22 .COMPLEX #90 tabs dronabinol 2.5 mg capsule 2.5 mg PO BID AC #60 caps 09/14/22 gabapentin 300 mg capsule 300 mg PO HS #90 tabs 09/14/22 magnesium oxide 400 mg (241.3 mg 400 mg PO DAILY #30 tabs 09/14/22 magnesium) tablet mirtazapine 15 mg tablet 15 mg PO HS #90 tabs 09/14/22 potassium chloride 10 mEq 40 meq PO ONCE #4 tabs 09/14/22 tablet,extended release ondansetron 8 mg disintegrating 8 mg PO Q12H PRN nausea and 10/02/22 tablet vomiting #90 tabs Allergies Allergy/AdvReac Type Severity Reaction Status Date / Time No Known Allergies Allergy Unverified 10/09/22 20:17 General Stated Complaint: Abd Prob NELSY: 3 Review of Systems Narrative: Weight loss malaise. Started chemotherapy with 46-hour infusion end of last week. At home. PFSH All Active Problems (Updated 10/09/22 @ 22:53 by Jayden Lawler MD) Pulmonary embolism (Chronic) Small bowel obstruction (Acute) Rectal cancer (Acute) Malnutrition (Acute) Hypokalemia (Acute) Abdominal ascites (Acute) Hypomagnesemia (Acute) Pneumonia (Acute) Palliative care patient (Acute) Unintentional weight loss (Acute) Metastatic carcinoma (Acute) Hyponatremia (Acute) Adenocarcinoma of right breast (Chronic) 09/23/15; [facility] [place]; ER,[place] POSITIVE Infiltrating ductal carcinoma of breast (Chronic 01/21/13) 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 White coat syndrome with hypertension (Chronic 10/01/17) Surgical History Breast, Lumpectomy (~02/2013) Cholecystectomy Reduction mammoplasty (~02/2013) Family History Mother , AGE 78 Cervical cancer Father , AGE 67 Hyperlipidemia PTSD (post-traumatic stress disorder) Hypertension Sister Hyperlipidemia Hypertension Brother , AGE 64 Essential hypertension Bladder cancer Alcohol abuse Substance abuse Brother Heart disease Alcohol abuse Substance abuse Hypertension Brother Substance abuse Diabetes Hypertension Alcohol abuse Depression Maternal Grandfather , AGE 78 Heart disease Paternal Grandfather , AGE 75 Heart disease Maternal Grandmother , AGE 85 No problems noted. Paternal Grandmother , AGE 81 No problems noted. Daughter Melanoma Hypertension Social History Smoking/Tobacco Use Status: Never Second Hand Exposure: No Smoking risk assessment performed?: Yes Alcohol Intake: current Alcohol Intake frequency: holidays/special occasions only Alcohol type: hard liquor Drug use: Never Substance use type: does not use Caregiver/Support person: No Household members: none Housing: house Pets and animals: No Sexually active: Yes Do you think of yourself as: straight/heterosexual Current gender identity: female Duration: 30-45 minutes/day Frequency: 3-4 times per week Clarissa/Confucianist: Sikh Special clarissa needs: No Do you feel safe at home: Yes Do you feel safe in your relationship?: Yes Exam Narrative Exam Narrative: GEN: awake, alert, oriented 3. Pleasant, cachectic, interactive. HEAD: Normocephalic, atraumatic ENT: Mucous membranes moist, oropharynx unremarkable, External ear exam unremarkable EYES: PERRL, EOMI, slight scleral icterus NECK: Full ROM, no МАРИЯ, no menigismus CHEST/RESP: Right anterior chest port, clean dry and intact nontender, clear to auscultation bilateral, no wheeze/rhonchi/rales CARDIOVASCULAR: RRR, no murmur, rub bipin. 2+ Rad pulse bilateral ABDOMEN: Soft, absent bowel sounds, tender primarily left upper quadrant. Brown stool present. EXT: Full ROM, no edema, no rash Neuro: Grossly normal neurologic exam, conversant, interactive. Psych: Speech fluent, thoughts congruent, affect normal Course Vital Signs Vital signs: Vital Signs Temperature 36.4 C L 10/09/22 18:45 Pulse 94 H 10/09/22 18:45 Respiratory Rate 15 10/09/22 18:45 Blood Pressure 97/60 L 10/09/22 18:45 Pulse Oximetry 95 10/09/22 18:45 Temperature 36.4 C L 10/09/22 18:45 Pulse 94 H 10/09/22 18:45 Respiratory Rate 15 10/09/22 18:45 Blood Pressure 97/60 L 10/09/22 18:45 Blood Pressure Position Supine 10/09/22 18:45 Pulse Oximetry 95 10/09/22 18:45 Oxygen Delivery Method Room Air 10/09/22 18:45 Oxygen Flow Rate 0 10/09/22 18:45 Pain Level 4 10/09/22 18:45 Lab/Test Results Lab/Test Results: 10/09/22 19:40 Blood Blood Culture - Pending 10/09/22 19:27 Blood Blood Culture - Pending Laboratory Tests Range/Units 10/09/22 10/09/22 19:50 19:50 WBC (4.4-10.8) 10^3/uL 9.10 RBC (3.93-5.22) 10^6/uL 4.48 Hgb (11.2-15.7) g/dL 13.9 Hct (36.0-46.0) % 40.3 MCV (80-95) fL 90 MCH (27.0-33.0) pg 31.0 MCHC (32.0-36.0) % 34.5 RDW (11.7-14.6) % 17.2 H Plt Count (130-400) 10^3/uL 169 MPV (8.0-11.0) fL 10.7 Immature Gran % 0.3 Neutrophils % 90.2 Lymphocytes % 7.4 Monocytes % 1.2 Eosinophils % 0.2 Basophils % 0.7 Nucleated RBC % (0.0-0.3) % 0.2 Absolute Neutrophils (1.2-6.7) 10^3/uL 8.21 H Absolute Lymphocytes (1.2-3.4) 10^3/uL 0.67 L Absolute Monocytes (0.1-0.8) 10^3/uL 0.11 Absolute Eosinophils (0.0-0.7) 10^3/uL 0.02 Absolute Basophils (0.0-0.2) 10^3/uL 0.06 VBG Lactate (0.6-1.4) mmol/L 4.3 H*
--- NOTE | 2022-10-09 20:15 | DI.CT_ITS ---
Exam(s) CT HEAD WO EXAM: CT HEAD WO CLINICAL HISTORY: metastatic colon cancer, weakness. TECHNIQUE: Imaging Protocol: Axial computed tomography images with coronal and sagittal reformatted images were created and reviewed COMPARISON: No exams were available for comparison FINDINGS: Ventricles and Extra axial spaces: Normal in size and morphology for the patient's age. Hemorrhage: None. Cerebral parenchyma: No evidence of an acute territorial infarct. Midline shift: None. Brainstem/Cerebellum: Normal. Calvarium: Normal. Visualized Paranasal sinuses/Mastoids: Clear. Soft Tissues: Unremarkable. IMPRESSION: No acute intracranial process. RADIATION DOSE DELIVERED: 768.15mGy.cm Total DLP DATA REPOSITORY: All CT scans at this facility are submitted to the National Radiology Data Registry (NRDR) Dose Index Registry (DIR) with the [employer] (ACR). RADIATION OPTIMIZATION: All CT scans at this facility use at least one of these dose optimization te chniques: automated exposure control; mA and/or kV adjustment per patient size (includes targeted exa ms where dose is matched to clinical indication); or iterative reconstruction.
[2022-10-09 20:16] LABS: ALT 84 U/L (14-59); AST 106 U/L (15-37); Alkaline Phosphatase 500 U/L (46-116); Anion Gap 10.3 mmol/L (3-11); BUN 31 mg/dL (7-18); CO2 23.7 mmol/L (21.0-32.0); CREATININE 0.8 mg/dL (0.55-1.02); Chloride 96 mmol/L (98-107); Estimated GFR 80.21 (mL/min/1.73m2); Glucose 117 mg/dL (74-106); Potassium 4.4 mmol/L (3.5-5.1); Sodium 130 mmol/L (136-145); Total Protein 5.1 g/dL (6.4-8.2)
[2022-10-09 20:43] LABS: COVID-19 PCR Negative (Negative); Influenza A PCR Negative (Negative); Influenza B PCR Negative (Negative); RSV PCR Negative (Negative)
[2022-10-09 20:46] LABS: Source Nasopharynx
[2022-10-09] MEDS: VANCOMYCIN 1,100 MG in Normal Saline 500 ML 333.3333 MG IVPB (20:50)
[2022-10-09 21:25] LABS: Diff Comment Agrees w/ Instrument; RBC Morphology Normal
--- NOTE | 2022-10-09 21:31 | DI.VRAD_ITS ---
PROCEDURE INFORMATION: Exam: CT Head Without Contrast Exam date and time: 10/09/2022 9:13 PM Age: 67 years old Clinical indication: Patient HX: Metastatic colon cancer, weakness TECHNIQUE: Imaging protocol: Computed tomography of the head without contrast. Radiation optimization: All CT scans at this facility use at least one of these dose optimization techniques: automated exposure control; mA and/or kV adjustment per patient size (includes targeted exams where dose is matched to clinical indication); or iterative reconstruction. COMPARISON: No relevant prior studies available. FINDINGS: Brain: Mild volume loss No hemorrhage. Mild white matter disease. No mass effect. Cerebral ventricles: No ventriculomegaly. Paranasal sinuses: Visualized sinuses are unremarkable. No fluid levels. Mastoid air cells: Visualized mastoid air cells are well aerated. Bones/joints: Unremarkable. No acute fracture. Soft tissues: Unremarkable. IMPRESSION: No acute intracranial abnormality. Dictated and Authenticated by: Luca Lagos MD. Ordering:NARDA Carpenter MD
--- NOTE | 2022-10-09 22:25 | DI.VRAD_ITS ---
Addendum created by Boston Atkins MD on 10/09/2022 10:24:39 PM EST: Addendum: THIS REPORT CONTAINS FINDINGS THAT MAY BE CRITICAL TO PATIENT CARE. The findings were verbally communicated via telephone conference with Dr Lawler at 10:24 PM EST on 10/09/2022. The findings were acknowledged and understood. Initial report created on 10/09/2022 10:21:47 PM EST: PROCEDURE INFORMATION: Exam: CT Chest With Contrast; Diagnostic Exam date and time: 10/09/2022 9:17 PM Age: 67 years old Clinical indication: Other: Metastatic colon cancer, weakness, lower abdominal pain; Other: Metastatic colon cancer, weakness, lower abdominal pain; Prior surgery; Surgery date: 6+ months TECHNIQUE: Imaging protocol: Diagnostic computed tomography of the chest with contrast. 3D rendering (Not supervised by radiologist): MIP and/or 3D reconstructed images were created by the technologist. Radiation optimization: All CT scans at this facility use at least one of these dose optimization techniques: automated exposure control; mA and/or kV adjustment per patient size (includes targeted exams where dose is matched to clinical indication); or iterative reconstruction. Contrast material: OMNIPAQUE 350; Contrast volume: 100 ml; Contrast route: INTRAVENOUS (IV); COMPARISON: CR XR CHEST 2V PA LATERAL 09/12/2022 9:55 AM FINDINGS: Tubes, catheters and devices: Central venous catheter in the right jugular distribution with tip in the right atrium. Thyroid: Subcentimeter bilateral thyroid nodules which do not require further evaluation based on current consensus criteria. Right thyroid lobe is atrophic. Lungs: No acute tracheobronchial abnormalities. Compressive atelectasis in the dependent lower lobes. Mild alveolar attenuation and interlobular septal thickening in the lung bases suspicious for mild element of pulmonary edema. Numerous bilateral pulmonary nodules consistent with the patient's known history of metastasis are again noted. Pleural spaces: Moderate bilateral pleural effusions. No pneumothorax. Heart: Heart size normal. Coronary arteries: Moderate coronary artery calcification. Lymph nodes: No supraclavicular or axillary adenopathy. Enlarged lymph nodes in the subcarinal distribution, superficial AP window, and left hilum with low-density central component suggesting partial central necrosis. Vasculature: The aorta demonstrates mild ectasia/tortuosity and moderate calcific atherosclerosis. No mediastinal hematoma. Pulmonary embolism is present in the left lower lobe. Thrombus burden is small. No large central emboli. No changes of pulmonary arterial hypertension. RV to LV ratio of 1.1 may indicate a mild element of right ventricular strain. Diaphragm: Moderate-sized hiatal hernia. Bones/joints: No acute osseous abnormalities are identified. Osteopenia. Mild-moderate thoracic spondylosis. Soft tissues: Moderate soft tissue stranding/edema in the peripheral subcutaneous tissues suggesting volume overload or anasarca. 2.7 cm chronic calcification in the right breast unchanged. IMPRESSION: 1. Pulmonary embolism in the left lower lobe distribution. Thrombus burden is small. No changes of pulmonary arterial hypertension. Mildly elevated RV to LV ratio may indicate mild right ventricular strain. 2. Numerous bilateral pulmonary nodules consistent with pulmonary metastases again noted. 3. Enlarged mediastinal and hilar nodes. 4. Moderate volume bilateral pleural effusions with adjacent compressive atelectasis. Suspect mild pulmonary edema in the lung bases. 5. Moderate generalized anasarca. 6. Moderate-sized hiatal hernia. 7. Additional nonemergent findings detailed above. 8. These findings initiated a critical results reporting process. An addendum will be issued at the time of clinician notification. PROCEDURE INFORMATION: Exam: CT Abdomen And Pelvis With Contrast Exam date and time: 10/09/2022 9:17 PM Age: 67 years old Clinical indication: Other: Metastatic colon cancer, weakness, lower abdominal pain; Other: Metastatic colon cancer, weakness, lower abdominal pain; Prior surgery; Surgery date: 6+ months TECHNIQUE: Imaging protocol: Computed tomography of the abdomen and pelvis with contrast. 3D rendering (Not supervised by radiologist): MIP and/or 3D reconstructed images were created by the technologist. Radiation optimization: All CT scans at this facility use at least one of these dose optimization techniques: automated exposure control; mA and/or kV adjustment per patient size (includes targeted exams where dose is matched to clinical indication); or iterative reconstruction. Contrast material: OMNIPAQUE 350; Contrast volume: 100 ml; Contrast route: INTRAVENOUS (IV); COMPARISON: CT ABDOMEN PELVIS W 09/11/2022 2:34 PM FINDINGS: Diaphragm: Moderate-sized hiatal hernia. Liver: Innumerable liver lesions consistent with diffuse hepatic metastasis again noted with interval progression in size. No intrahepatic biliary ductal dilatation. Gallbladder and bile ducts: Prior cholecystectomy with no significant dilatation of the common bile duct. Pancreas: Moderate pancreatic atrophy. 15 mm low-density lesion in the pancreatic tail is increased in size, probable metastatic progression. Spleen: Low-density probable splenic cysts again noted. Adrenal glands: Left adrenal nodule mildly increased in size at 15 mm short axis. Right adrenal nodule is new. This suggests progression of metastasis. Kidneys and ureters: No acute abnormalities. No hydronephrosis or hydroureter. No urinary tract stones are identified. Probable cortical cyst in the lower pole of the right kidney which does not require further assessment. Stomach and bowel: Dilated small bowel measuring up to 4.5 cm, transitioning to nondilated distal small bowel in the mid abdominal region and concerning for possible obstruction. No evidence of perforation. Colonic wall thickening in the sigmoid colon and at the right lateral rectal margin consistent with clinically described colon carcinoma again noted. Appendix: The appendix is not identified. Intraperitoneal space: Moderate volume ascites throughout the abdomen and pelvis with mild multifocal peritoneal enhancement, possible peritoneal metastasis. No free air. Vasculature: No acute process. No abdominal aortic aneurysm. Moderate calcific atherosclerosis. Lymph nodes: Enlarged lymph nodes in the right lateral pelvis and along the sigmoid mesentery. Urinary bladder: Mild left inferolateral bladder wall thickening adjacent to the mass along the anterior rectal margin concerning for possible bladder wall invasion, unchanged. Moderate urinary bladder distension. Reproductive: Unremarkable as visualized. Bones/joints: No acute osseous abnormalities. Soft tissues: Moderate generalized anasarca. Scattered enhancing soft tissue nodules are seen in the abdomen and pelvis consistent with soft tissue metastases demonstrating interval progression. IMPRESSION: 1. Dilated mid abdominal small bowel loops transitioning to nondilated distal small bowel and concerning for possible obstruction with transition point in the right mid abdominal region. No perforation. 2. Extensive mass in the distal sigmoid colon and proximal rectum consistent with known colon carcinoma, with enlarged nodes in the right hemipelvis and sigmoid mesentery again noted. 3. Moderate volume ascites with multifocal peritoneal enhancement/nodularity consistent with peritoneal metastases. 4. Progression of metastasis in the liver, adrenal glands, and pancreatic tail. Progression of soft tissue metastases throughout the abdomen and pelvis as well. Dictated and Authenticated by: Boston Atkins MD. Ordering:JAIRO Mead MD
[2022-10-09 22:43] LABS: Bilirubin Negative (Negative); Blood Negative (Negative); Clarity Clear (Clear); Glucose Negative (Negative); Ketones Negative (Negative); Leukocyte Esterase Negative (Negative); Nitrite Negative (Negative); Specific Gravity 1.015 (1.005-1.025); pH 5.5 (5-8)
[2022-10-09] MEDS: Normal Saline 1,000 ML 150 ML IV (22:48)
--- NOTE | 2022-10-09 23:30 | HPE_ITS ---
Date of service: 10/09/22 Time of Service: 23:30 Assessment and Plan Assessment and plan (1) Metastatic carcinoma: Status: Acute Assessment and plan: Widely metastatic colorectal cancer. Extensive discussion with patient and daughter about prognosis and goals of care. At this point she wishes us to c ontinue with goal directed medical therapy and would like at least limited resuscitation efforts should such be required, but she does understand the gravity of her situation and is trying to work it through. As to specifics: 1.Probable partial SBO: NPO, IVF, surgical consult. Does not need NGT at present. 2. ID: not clear if has infection but probably reasonable to continue broad sp[ecterum antibiotics at this point until cxx resulted. Will trim to Zosyn alone as bowel is likely source 3. Hypotension: probable simple hypovolemia but cannot r/o early sepsis. I would also consider adrenal insufficiency given involvement of adrenals. Will continue fluids, abx and will give single empiric dose hydrocortisone 100 mg 4.PE: Some concern for anticoagulation given risk of bleeding from bowel lesion. Reviewed with ER physician and we agree that a reasonable course and optimized cost/benefit analysis would be for use of a short acting heparin 5. Code status: As above Full Code for now, but patient does seem to understand that a successful outcome would not be likely in her circumstance. Will also consult Palliative Care. History of Present Illness History of Present Illness Chief Complaint: abdominal pain Narrative: 67 yo female with recently diagnosed stage 4 colorectal cancer, had first dose palliative chemo (FOLFOX) four days [facility]. Here with oned day of mid=abdominal pain. No raidiation, last BM today, has been having some nausea sine starting chemo but does not seem any different since start of abdominal pain today. Here in ER was initially hypotensive in 80s/sys with lacate 4.3 and out of concern for possible sepsis had blood cultures drawn and started on Vanco/Zosyn. Work up otherewise of note for absence of fever; white count 9.6 with 90% PMN and no bands; Na 130, BUN 31, Cr 0.8; TBili 3.0; and CT chest abd and pelvis showing extensive and progressive metastatic disease involving lungs, liver, pancreas, adrenals and diffusely in soft tissues, with large rectal mass and possible small bowel obstruction. There was also incidental finding of a pulmonary embolus on right with overall small clot burden. Patient has been given IVF in addition to above mentioned antibiotics. At present denies abdominal pain. Also denies CP or SOB. Review of Systems Narrative: per HPI PFSH All Active Problems Pulmonary embolism (Chronic) Small bowel obstruction (Acute) Rectal cancer (Acute) Malnutrition (Acute) Hypokalemia (Acute) Abdominal ascites (Acute) Hypomagnesemia (Acute) Pneumonia (Acute) Palliative care patient (Acute) Unintentional weight loss (Acute) Metastatic carcinoma (Acute) Hyponatremia (Acute) Adenocarcinoma of right breast (Chronic) 09/23/15; [facility] [place]; [place] POSITIVE Infiltrating ductal carcinoma of breast (Chronic 01/21/13) [facility] [place]; RIGHT BREAST lumpectomy,chemo,radiation Annual physical exam (Acute 06/03/17) Essential hypertension (Chronic 06/30/13) 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 White coat syndrome with hypertension (Chronic 10/01/17) Surgical History Breast, Lumpectomy (~02/2013) Cholecystectomy Reduction mammoplasty (~02/2013) Family History Mother , AGE 78 Cervical cancer Father , AGE 67 Hyperlipidemia PTSD (post-traumatic stress disorder) Hypertension Sister Hyperlipidemia Hypertension Brother , AGE 64 Essential hypertension Bladder cancer Alcohol abuse Substance abuse Brother Heart disease Alcohol abuse Substance abuse Hypertension Brother Substance abuse Diabetes Hypertension Alcohol abuse Depression Maternal Grandfather , AGE 78 Heart disease Paternal Grandfather , AGE 75 Heart disease Maternal Grandmother , AGE 85 No problems noted. Paternal Grandmother , AGE 81 No problems noted. Daughter Melanoma Hypertension Social History Smoking/Tobacco Use Status: Never Second Hand Exposure: No Smoking risk assessment performed?: Yes Alcohol Intake: current Alcohol Intake frequency: holidays/special occasions only Alcohol type: hard liquor Drug use: Never Substance use type: does not use Caregiver/Support person: No Household members: none Housing: house Pets and animals: No Sexually active: Yes Do you think of yourself as: straight/heterosexual Current gender identity: female Duration: 30-45 minutes/day Frequency: 3-4 times per week Clarissa/Holiness: Denominational Special clarissa needs: No Do you feel safe at home: Yes Do you feel safe in your relationship?: Yes Meds Allergies and Home Medications Allergies Allergy/AdvReac Type Severity Reaction Status Date / Time No Known Allergies Allergy Unverified 10/09/22 20:17 Home Medications Medication Instructions Recorded Confirmed Type calcium carbonate 600 mg calcium 600 mg PO DAILY 10/24/15 10/09/22 History (1,500 mg) tablet cholecalciferol (vitamin D3) 25 1,000 unit PO DAILY 10/24/15 10/09/22 History mcg (1,000 unit) tablet nystatin 100,000 unit/gram topical 1 applic topical DAILY PRN rash 09/09/18 10/09/22 Rx cream #15 grams letrozole 2.5 mg tablet 2.5 mg PO DAILY #90 tabs 01/25/22 10/09/22 Rx acetaminophen 500 mg tablet 500 mg PO Q6H PRN #30 tab-caps 09/14/22 10/09/22 Rx atenolol 25 mg tablet See Rx Instructions .Route 09/14/22 10/09/22 Rx .COMPLEX #90 tabs dronabinol 2.5 mg capsule 2.5 mg PO BID AC #60 caps 09/14/22 10/09/22 Rx gabapentin 300 mg capsule 300 mg PO HS #90 tabs 09/14/22 10/09/22 Rx magnesium oxide 400 mg (241.3 mg 400 mg PO DAILY #30 tabs 09/14/22 10/09/22 Rx magnesium) tablet mirtazapine 15 mg tablet 15 mg PO HS #90 tabs 09/14/22 10/09/22 Rx potassium chloride 10 mEq 40 meq PO ONCE #4 tabs 09/14/22 10/09/22 Rx tablet,extended release ondansetron 8 mg disintegrating 8 mg PO Q12H PRN nausea and 10/02/22 10/09/22 Rx tablet vomiting #90 tabs prochlorperazine maleate 10 mg 10 mg PO PRN PRN 10/09/22 10/09/22 History tablet Exam Narrative Exam Narrative: 96/61, 84, 36.4, 17, 95% RA. Looks cachectic. HEENT atraumatic; neck supple; lungs few basialr rales; heart RRR w/o MRG; abdomen mild diffuse tenderness w/o rebound; rectal deferred; extremities w/o edema; neuro Ox3, lucid, moves all 4s Results Labs 10/09/22 19:50 10/09/22 19:50 Labs: Laboratory Results - last 24 hr 10/09/22 10/09/22 10/09/22 19:40 19:50 19:50 WBC 9.10 RBC 4.48 Hgb 13.9 Hct 40.3 MCV 90 MCH 31.0 MCHC 34.5 RDW 17.2 H Plt Count 169 MPV 10.7 Immature Gran % 0.3 Neutrophils % 90.2 Lymphocytes % 7.4 Monocytes % 1.2 Eosinophils % 0.2 Basophils % 0.7 Nucleated RBC % 0.2 Absolute Neutrophils 8.21 H Absolute Lymphocytes 0.67 L Absolute Monocytes 0.11 Absolute Eosinophils 0.02 Absolute Basophils 0.06 RBC Morphology Normal VBG Lactate Sodium 130 L Potassium 4.4 Chloride 96 L Carbon Dioxide 23.7 Anion Gap 10.3 BUN 31 H Creatinine 0.8 Est GFR (CKD-EPI 2020) 80.21 Glucose 117 H Calcium 9.0 Total Bilirubin 3.0 H AST 106 H ALT 84 H Alkaline Phosphatase 500 H Total Protein 5.1 L Albumin 2.0 L Urine Color Urine Clarity Urine pH Ur Specific [place] Urine Protein Urine Ketones Urine Blood Urine Nitrite Urine Bilirubin Urine Urobilinogen Ur Leukocyte Esterase Urine Glucose COVID-19 Source Nasopharynx SARS-CoV-2 (PCR) Negative Influenza Type A (PCR) Negative Influenza Type B (PCR) Negative RSV (PCR) Negative 10/09/22 10/09/22 19:50 22:38 WBC RBC Hgb Hct MCV MCH MCHC RDW Plt Count MPV Immature Gran % Neutrophils % Lymphocytes % Monocytes % Eosinophils % Basophils % Nucleated RBC % Absolute Neutrophils Absolute Lymphocytes Absolute Monocytes Absolute Eosinophils Absolute Basophils RBC Morphology VBG Lactate 4.3 H* Sodium Potassium Chloride Carbon Dioxide Anion Gap BUN Creatinine Est GFR (CKD-EPI 2020) Glucose Calcium Total Bilirubin AST ALT Alkaline Phosphatase Total Protein Albumin Urine Color Yellow Urine Clarity Clear Urine pH 5.5 Ur Specific [place] 1.015 Urine Protein Negative Urine Ketones Negative Urine Blood Negative Urine Nitrite Negative Urine Bilirubin Negative Urine Urobilinogen 1.0 H Ur Leukocyte Esterase Negative Urine Glucose Negative COVID-19 Source SARS-CoV-2 (PCR) Influenza Type A (PCR) Influenza Type B (PCR) RSV (PCR) Last Vital Signs Temp 36.4 C L 10/09/22 18:45 Pulse 84 10/09/22 21:00 Resp 17 10/09/22 22:40 BP 96/61 L 10/09/22 21:00 Pulse Ox 95 10/09/22 22:40 Time Spent Time spent with Patient: >75 minutes Time was spent: preparing to see the patient(eg.review tests), obtaining and/or reviewing separately otained hiistory, ordering medications,tests, procedures, referring, communicating with other health managed care nurse, indepentently interpreting results and counseling the patient
[2022-10-10] VITALS (11 sets, daily range): BP systolic 74–101; BP diastolic 50–68; PULSE 74–88; RESP 13–22; TEMP 36.2–36.9; O2SAT 92–98
[2022-10-10 01:44] LABS: PTT Activated 32.1 sec (21.5-31.9)
[2022-10-10] MEDS: Hydrocortisone SOD SUC. 100 MG VIAL IVP (02:37)
[2022-10-10] MEDS: PIPERACILLIN/TAZO 3.375 GM in Normal Saline 50 ML IVPB ×2 (02:37→08:38)
[2022-10-10] MEDS: Lactated Ringers 1,000 ML 150 ML IV ×2 (03:11→09:33)
[2022-10-10] MEDS: Lactated Ringers 1,000 ML 500 ML IV (06:40)
[2022-10-10 06:44] LABS: HCT 35.9 % (36.0-46.0); HGB 12.3 g/dL (11.2-15.7); Lactate 3.2 mmol/L (0.6-1.4); MCH 30.8 pg (27.0-33.0); MCHC 34.3 % (32.0-36.0); MCV 90 fL (80-95); MPV 10.4 fL (8.0-11.0); Platelet Count 141 10^3/uL (130-400); RBC 3.99 10^6/uL (3.93-5.22); RDW 17.4 % (11.7-14.6); RDW-SD 57.1 fL; WBC 13.38 10^3/uL (4.4-10.8)
[2022-10-10 06:52] LABS: BUN 36 mg/dL (7-18); CREATININE 0.9 mg/dL (0.55-1.02); Calcium 8.9 mg/dL (8.5-10.1); Chloride 97 mmol/L (98-107); Estimated GFR 69.64 (mL/min/1.73m2); Glucose 119 mg/dL (74-106); Potassium 4.4 mmol/L (3.5-5.1); Sodium 132 mmol/L (136-145)
[2022-10-10] MEDS: Dronabinol 2.5 MG CAP PO ×2 (07:43→15:41)
[2022-10-10] MEDS: Atenolol 25 MG TAB PO (08:38)
--- NOTE | 2022-10-10 09:21 | PDOC.CMIN ---
- If Service Date Differs Date of service: 10/10/22 Time of Service: 09:22 Care Management Initial Assess REASON FOR HOSPITALIZATION:: Metastatic carcinoma PAST MEDICAL HISTORY/PAST SURGICAL HISTORY:: All Active Problems . Pulmonary embolism (Chronic). Small bowel obstruction (Acute). Rectal cancer (Acute). Malnutrition (Acute). Hypokalemia (Acute). Abdominal ascites (Acute). Hypomagnesemia (Acute). Pneumonia (Acute). Palliative care patient (Acute). Unintentional weight loss (Acute). Metastatic carcinoma (Acute). Hyponatremia (Acute). Adenocarcinoma of right breast (Chronic). 09/23/15; [facility] [place] [facility] [place]. Infiltrating ductal carcinoma of breast (Chronic 01/21/13). [facility] [place] [place] BREAST. lumpectomy,chemo,radiation. Annual physical exam (Acute 06/03/17). Essential hypertension (Chronic 06/30/13). 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). due to chemo. White coat syndrome with hypertension (Chronic 10/01/17). Surgical History . Breast, Lumpectomy (~02/2013). Cholecystectomy. Reduction mammoplasty (~02/2013) PREVIOUS FUNCTIONAL STATUS/SOCIAL/FAMILY SUPPORTS:: Shana lives alone in a 2 family home in [place]. Her brother and his family live upstairs and Shana lives downstairs. She has one child, a daughter Misael, who also lives in [place] and is very supportive. 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 CURRENT FUNCTIONAL STATUS:: Shana is lying in bed when CM met with her. She is accompanied by her daughter and son-in-law. She is very pleasant and easily engages in conversation. She spoke with Dr. Vargas this morning and is planning on discharging home on [facility] in the next day or two. Daphney from Hospice is planning on meeting with Shana and her family tomorrow. ADVANCE DIRECTIVES:: [facility] on file- daughter Misael Has patient been provided with info about the portal/API?: Yes Did the patient sign up for the portal?: No CODE STATUS:: Full Code INSURANCE COVERAGE / FINANCIAL ISSUES:: /[facility] CURRENT HOME/COMMUNITY SERVICES/EQUIPMENT:: None PRIMARY CARE PHYSICIAN:: [facility] POTENTIAL DISCHARGE NEEDS:: [place] PATIENT/FAMILY EDUCATION NEEDS:: Review of discharge instructions, limitations, activity, follow up plan, discuss Ask Me Three TRANSPORTATION:: EMS, coordinated by CM PLAN:: Shana is planning on discharging home with admission to [facility]osp[facility] services. Her daughter Misael will be her caregiver. She will transport via EMS, which will be coordinated by CM. Anticipate, Shana will need a hospital bed, bedside table, commode, shower chair and a wheelchair. CM will continue to follow.
--- NOTE | 2022-10-10 09:54 | NUR.NOTE ---
Nursing Note: Critical lab reported by Ann Sahu to Peggy Chavez RN. Patient has positive blood culture of gram negative rods.
--- NOTE | 2022-10-10 10:12 | W.PALLCONSUL ---
Date of service: 10/10/22 Time of Service: 10:12 History of Present Illness History of Present Illness Chief Complaint: nausea and bloating Narrative: From ER note: Medical Decision Making This is a 67-year-old female who presents from home with her daughter.? She describes the fairly rapid onset approximately 2 PM of nausea and bloating in her abdomen.? She is recently diagnosed in August with what her daughter states is now stage IV metastatic colorectal adenocarcinoma.? This weekend she finished her first 46-hour infusion of FOLFOX, her chemotherapeutic.? She was initially seen by Dr. Beckett after arriving slightly hypotensive.? She is afebrile.? He had empirically ordered blood cultures, 1 L of fluid and broad-spectrum antibiotics.? She is also referred for imaging studies.? On my examination she is cachectic and does demonstrate left sided abdominal pain. Laboratories will note a white blood cell count of 9, hematocrit 40, platelets 169.? Lactic acid elevated 4.3.? She has hyponatremia with sodium 130, potassium 4.4, chloride 96, bicarb 23, BUN 31 and creatinine 0.8.? Total bili is elevated at 3.0.? AST 106, ALT 84.? Albumin is 2.0.? Screening virus panel negative. Imaging: Patient has advancing metastatic cancer now with metastases to lung, liver, pancreas, adrenal glands, mesentery.? There is evidence of a left lower lobe PE.? There are dilated small bowel loops with possible obstruction and extensive mass present in the distal sigmoid colon. Patient and her daughter state to me that she would benefit from palliative care consult tomorrow as Dr. Vargas is her primary.? The patient at this point is hesitant to pursue aggressive and invasive procedures.? She would currently remain a full code but would not want prolonged life support.? Case was discussed with and patient seen by Dr. Crane who will admit. Interim Hx: Shana is in the hospital room. Her daughter and son-in-law are with her. She states that she is feeling a little bit better than she did this morning but is still very very tired. She has significant amount of pain. She understands that her condition is worse than what it was at her last hospitalization. She has received 1 treatment. She knows she is very sick and that she came into the hospital in poor condition. She does not expect to get better but is hoping for some quality time. She had expressed to the ER doctor and also Dr. Crane that she wanted to be a full code. Assessment and Plan Assessment and plan (1) Pulmonary embolism: Status: Chronic Assessment and plan: Heparin drip (2) Small bowel obstruction: Status: Acute Assessment and plan: More comfortable now, does not require an NG tube (3) Rectal cancer: Status: Acute (4) Malnutrition: Status: Acute (5) Abdominal ascites: Status: Acute (6) Palliative care patient: Status: Acute Assessment and plan: We had a long discussion about her goals. She definitely chooses quality over quantity. She wants to be at home and have as little traffic in her home i.e. people coming in and out, nursing etc. as possible. Her daughter will be her caregiver. She would rather have quiet solitude then a stream of people coming in. I did explain about hospice and a less than 6-month prognosis. I explained that I thought she had weeks to months to live. I did recommend that she get her affairs in order such as a will etc. Discussion about code status. She decided she did not want CPR and wanted to choose DNR/DNI. She completed a COLST form. Original was given to daughter. Copy sent to Hospice. I contacted Hospice for a Hospice Consult per wishes of Shana. She has chosen not to pursue further treatment and wants to go home . Thank you very much for this consult. Review of Systems Narrative: Nausea, vomiting, abdominal pain, back pain, fatigue, weight loss PFSH All Active Problems Pulmonary embolism (Chronic) Small bowel obstruction (Acute) Rectal cancer (Acute) Malnutrition (Acute) Hypokalemia (Acute) Abdominal ascites (Acute) Hypomagnesemia (Acute) Pneumonia (Acute) Palliative care patient (Acute) Unintentional weight loss (Acute) Metastatic carcinoma (Acute) Hyponatremia (Acute) Adenocarcinoma of right breast (Chronic) 09/23/15; [facility] [place]; ER,AR POSITIVE Infiltrating ductal carcinoma of breast (Chronic 01/21/13) [facility] [place]; RIGHT BREAST lumpectomy,chemo,radiation Annual physical exam (Acute 06/03/17) Essential hypertension (Chronic 06/30/13) 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 White coat syndrome with hypertension (Chronic 10/01/17) Surgical History Breast, Lumpectomy (~02/2013) Cholecystectomy Reduction mammoplasty (~02/2013) Family History Mother , AGE 78 Cervical cancer Father , AGE 67 Hyperlipidemia PTSD (post-traumatic stress disorder) Hypertension Sister Hyperlipidemia Hypertension Brother , AGE 64 Essential hypertension Bladder cancer Alcohol abuse Substance abuse Brother Heart disease Alcohol abuse Substance abuse Hypertension Brother Substance abuse Diabetes Hypertension Alcohol abuse Depression Maternal Grandfather , AGE 78 Heart disease Paternal Grandfather , AGE 75 Heart disease Maternal Grandmother , AGE 85 No problems noted. Paternal Grandmother , AGE 81 No problems noted. Daughter Melanoma Hypertension Social History Smoking/Tobacco Use Status: Never Second Hand Exposure: No Smoking risk assessment performed?: Yes Alcohol Intake: current Alcohol Intake frequency: holidays/special occasions only Alcohol type: hard liquor Drug use: Never Substance use type: does not use Caregiver/Support person: No Household members: none Housing: house Pets and animals: No Sexually active: Yes Do you think of yourself as: straight/heterosexual Current gender identity: female Duration: 30-45 minutes/day Frequency: 3-4 times per week Clarissa/Synagogue: Taoist Special clarissa needs: No Do you feel safe at home: Yes Do you feel safe in your relationship?: Yes Exam Narrative Exam Narrative: Shana has lost a considerable amount of weight. She looks cachectic. Her voice is strong. She is alert and oriented. She is speaking in complete sentences. She is thoughtful during our discussions Results Last Vital Signs Temp 97.7 F 10/10/22 07:17 Pulse 77 10/10/22 07:17 Resp 16 10/10/22 07:17 BP 92/60 L 10/10/22 07:17 Pulse Ox 97 10/10/22 07:17 CT Chest MPRESSION: 1. ? Pulmonary embolism in the left lower lobe distribution. Thrombus burden is small. No changes of pulmonary arterial hypertension. Mildly elevated RV to LV ratio may indicate mild right ventricular strain. 2. ? Numerous bilateral pulmonary nodules consistent with pulmonary metastases again noted. 3. ? Enlarged mediastinal and hilar nodes. 4. ? Moderate volume bilateral pleural effusions with adjacent compressive atelectasis. Suspect mild pulmonary edema in the lung bases. 5. ? Moderate generalized anasarca. 6. ? Moderate-sized hiatal hernia. 7. ? Additional nonemergent findings detailed above. 8 Labs 10/10/22 06:27 10/10/22 06:27 Labs: Laboratory Results - last 24 hr 10/09/22 10/09/22 10/09/22 19:40 19:50 19:50 WBC 9.10 RBC 4.48 Hgb 13.9 Hct 40.3 MCV 90 MCH 31.0 MCHC 34.5 RDW 17.2 H Plt Count 169 MPV 10.7 Immature Gran % 0.3 Neutrophils % 90.2 Lymphocytes % 7.4 Monocytes % 1.2 Eosinophils % 0.2 Basophils % 0.7 Nucleated RBC % 0.2 Absolute Neutrophils 8.21 H Absolute Lymphocytes 0.67 L Absolute Monocytes 0.11 Absolute Eosinophils 0.02 Absolute Basophils 0.06 RBC Morphology Normal APTT VBG Lactate Sodium 130 L Potassium 4.4 Chloride 96 L Carbon Dioxide 23.7 Anion Gap 10.3 BUN 31 H Creatinine 0.8 Est GFR (CKD-EPI 2020) 80.21 Glucose 117 H Calcium 9.0 Total Bilirubin 3.0 H AST 106 H ALT 84 H Alkaline Phosphatase 500 H Total Protein 5.1 L Albumin 2.0 L Urine Color Urine Clarity Urine pH Ur Specific [place] Urine Protein Urine Ketones Urine Blood Urine Nitrite Urine Bilirubin Urine Urobilinogen Ur Leukocyte Esterase Urine Glucose COVID-19 Source Nasopharynx SARS-CoV-2 (PCR) Negative Influenza Type A (PCR) Negative Influenza Type B (PCR) Negative RSV (PCR) Negative 10/09/22 10/09/22 10/10/22 19:50 22:38 01:20 WBC RBC Hgb Hct MCV MCH MCHC RDW Plt Count MPV Immature Gran % Neutrophils % Lymphocytes % Monocytes % Eosinophils % Basophils % Nucleated RBC % Absolute Neutrophils Absolute Lymphocytes Absolute Monocytes Absolute Eosinophils Absolute Basophils RBC Morphology APTT 32.1 H VBG Lactate 4.3 H* Sodium Potassium Chloride Carbon Dioxide Anion Gap BUN Creatinine Est GFR (CKD-EPI 2020) Glucose Calcium Total Bilirubin AST ALT Alkaline Phosphatase Total Protein Albumin Urine Color Yellow Urine Clarity Clear Urine pH 5.5 Ur Specific [place] 1.015 Urine Protein Negative Urine Ketones Negative Urine Blood Negative Urine Nitrite Negative Urine Bilirubin Negative Urine Urobilinogen 1.0 H Ur Leukocyte Esterase Negative Urine Glucose Negative COVID-19 Source SARS-CoV-2 (PCR) Influenza Type A (PCR) Influenza Type B (PCR) RSV (PCR) 10/10/22 10/10/22 10/10/22 06:27 06:27 06:27 WBC 13.38 H RBC 3.99 Hgb 12.3 Hct 35.9 L MCV 90 MCH 30.8 MCHC 34.3 RDW 17.4 H Plt Count 141 MPV 10.4 Immature Gran % Neutrophils % Lymphocytes % Monocytes % Eosinophils % Basophils % Nucleated RBC % Absolute Neutrophils Absolute Lymphocytes Absolute Monocytes Absolute Eosinophils Absolute Basophils RBC Morphology APTT VBG Lactate 3.2 H* Sodium 132 L Potassium 4.4 Chloride 97 L Carbon Dioxide 24.0 Anion Gap 11.0 BUN 36 H Creatinine 0.9 Est GFR (CKD-EPI 2020) 69.64 Glucose 119 H Calcium 8.9 Total Bilirubin AST ALT Alkaline Phosphatase Total Protein Albumin Urine Color Urine Clarity Urine pH Ur Specific [place] Urine Protein Urine Ketones Urine Blood Urine Nitrite Urine Bilirubin Urine Urobilinogen Ur Leukocyte Esterase Urine Glucose COVID-19 Source SARS-CoV-2 (PCR) Influenza Type A (PCR) Influenza Type B (PCR) RSV (PCR)
[2022-10-10] MEDS: Enoxaparin 80 MG/0.8 ML SYR 60 MG SC ×2 (12:21→23:36)
--- NOTE | 2022-10-10 13:31 | CHAPLAIN ---
Shana was just finishing up meeting with [employer] Rossy Sood when I visited this afternoon. Shana was resting in bed. Her daughter and another person were with her. Shana and I remembered each other from a previous admission. Shana works for the [employer], and primarily works from home. She is a member of [place]. She said she hasn't been attending in person due to COVID as she doesn't get out much and most of her work meetings are online. She declined my offer to let Fr. Gutierrez know she is here, but asked about letting Gamal Kaur know. Gamal is a deacon at the [employer] and family friend. Shana's daughter said she would like Gamal know that Shana is here. Shana said she's had a busy day meeting with staff, including Dr. Vargas from Palliative Care. Shana added that she made some decisions today and feels good about that. She is very pleasant and easily engages in a conversation. S he seemed to really appreciate the prayer shawl I gave her, and talked about a knitted hat she received when she had cancer the first time, and how she appreciated that gift. I will continue to visit.
[2022-10-10] MEDS: PIPERACILLIN/TAZO 3.375 GM in Normal Saline 100 ML IVPB ×2 (14:29→19:19)
[2022-10-10] MEDS: Normal Saline Flush 10 ML SYR IVP (16:19)
--- NOTE | 2022-10-10 17:24 | W.PM.PROGNOT ---
Date of Service Date of service: 10/10/22 Time of Service: 17:25 Assessment and Plan Assessment and plan (1) Metastatic carcinoma: Status: Acute Assessment and plan: Widely metastatic colorectal cancer. Palliative consult appreciated. She has signed a COLST form and wishes to pursue no further txs. Hospice to evaluate and admit to their service tomorrow. She then desires to go home. (2) Gram-negative bacteremia: Status: Acute Assessment and plan: D/C'd vancomycin. Cont Paty lubin and will see if she decides on oral medication when discharging on hospice tomorrow. (3) Pulmonary embolism: Status: Chronic Assessment and plan: Initially placed on heparin; now, with no interventions planned, changed to Lovenox. (4) Discharge planning issues: Status: Acute Assessment and plan: She and family will meet with hospice tomorrow with plan to d/c to home. DNR/DNI Subjective Subjective Patient reports: pain is less, tolerating liquids well and afebrile; denies nausea, vomiting or shortness of breath Exam Narrative Exam Narrative: Gen: appears cachectic and frail. HEENT atraumatic Neck supple Lungs clear anteriorly Heart RRR w/o MRG Abdomen mild diffuse tenderness w/o rebound Exts no edema. Psych: A&O x 3. Objective Last Vital Signs Temp 36.7 C 10/10/22 16:11 Pulse 74 10/10/22 16:11 Resp 16 10/10/22 16:11 BP 81/54 L 10/10/22 16:11 Pulse Ox 97 10/10/22 16:11 Laboratory Results - last 24 hr 10/09/22 10/09/22 10/09/22 19:40 19:50 19:50 WBC 9.10 RBC 4.48 Hgb 13.9 Hct 40.3 MCV 90 MCH 31.0 MCHC 34.5 RDW 17.2 H Plt Count 169 MPV 10.7 Immature Gran % 0.3 Neutrophils % 90.2 Lymphocytes % 7.4 Monocytes % 1.2 Eosinophils % 0.2 Basophils % 0.7 Nucleated RBC % 0.2 Absolute Neutrophils 8.21 H Absolute Lymphocytes 0.67 L Absolute Monocytes 0.11 Absolute Eosinophils 0.02 Absolute Basophils 0.06 RBC Morphology Normal APTT VBG Lactate Sodium 130 L Potassium 4.4 Chloride 96 L Carbon Dioxide 23.7 Anion Gap 10.3 BUN 31 H Creatinine 0.8 Est GFR (CKD-EPI 2020) 80.21 Glucose 117 H Calcium 9.0 Total Bilirubin 3.0 H AST 106 H ALT 84 H Alkaline Phosphatase 500 H Total Protein 5.1 L Albumin 2.0 L Urine Color Urine Clarity Urine pH Ur Specific [place] Urine Protein Urine Ketones Urine Blood Urine Nitrite Urine Bilirubin Urine Urobilinogen Ur Leukocyte Esterase Urine Glucose COVID-19 Source Nasopharynx SARS-CoV-2 (PCR) Negative Influenza Type A (PCR) Negative Influenza Type B (PCR) Negative RSV (PCR) Negative 10/09/22 10/09/22 10/10/22 19:50 22:38 01:20 WBC RBC Hgb Hct MCV MCH MCHC RDW Plt Count MPV Immature Gran % Neutrophils % Lymphocytes % Monocytes % Eosinophils % Basophils % Nucleated RBC % Absolute Neutrophils Absolute Lymphocytes Absolute Monocytes Absolute Eosinophils Absolute Basophils RBC Morphology APTT 32.1 H VBG Lactate 4.3 H* Sodium Potassium Chloride Carbon Dioxide Anion Gap BUN Creatinine Est GFR (CKD-EPI 2020) Glucose Calcium Total Bilirubin AST ALT Alkaline Phosphatase Total Protein Albumin Urine Color Yellow Urine Clarity Clear Urine pH 5.5 Ur Specific [place] 1.015 Urine Protein Negative Urine Ketones Negative Urine Blood Negative Urine Nitrite Negative Urine Bilirubin Negative Urine Urobilinogen 1.0 H Ur Leukocyte Esterase Negative Urine Glucose Negative COVID-19 Source SARS-CoV-2 (PCR) Influenza Type A (PCR) Influenza Type B (PCR) RSV (PCR) 10/10/22 10/10/22 10/10/22 06:27 06:27 06:27 WBC 13.38 H RBC 3.99 Hgb 12.3 Hct 35.9 L MCV 90 MCH 30.8 MCHC 34.3 RDW 17.4 H Plt Count 141 MPV 10.4 Immature Gran % Neutrophils % Lymphocytes % Monocytes % Eosinophils % Basophils % Nucleated RBC % Absolute Neutrophils Absolute Lymphocytes Absolute Monocytes Absolute Eosinophils Absolute Basophils RBC Morphology APTT VBG Lactate 3.2 H* Sodium 132 L Potassium 4.4 Chloride 97 L Carbon Dioxide 24.0 Anion Gap 11.0 BUN 36 H Creatinine 0.9 Est GFR (CKD-EPI 2020) 69.64 Glucose 119 H Calcium 8.9 Total Bilirubin AST ALT Alkaline Phosphatase Total Protein Albumin Urine Color Urine Clarity Urine pH Ur Specific [place] Urine Protein Urine Ketones Urine Blood Urine Nitrite Urine Bilirubin Urine Urobilinogen Ur Leukocyte Esterase Urine Glucose COVID-19 Source SARS-CoV-2 (PCR) Influenza Type A (PCR) Influenza Type B (PCR) RSV (PCR) 10/10/22 09:53 WBC RBC Hgb Hct MCV MCH MCHC RDW Plt Count MPV Immature Gran % Neutrophils % Lymphocytes % Monocytes % Eosinophils % Basophils % Nucleated RBC % Absolute Neutrophils Absolute Lymphocytes Absolute Monocytes Absolute Eosinophils Absolute Basophils RBC Morphology APTT Cancelled VBG Lactate Sodium Potassium Chloride Carbon Dioxide Anion Gap BUN Creatinine Est GFR (CKD-EPI 2020) Glucose Calcium Total Bilirubin AST ALT Alkaline Phosphatase Total Protein Albumin Urine Color Urine Clarity Urine pH Ur Specific [place] Urine Protein Urine Ketones Urine Blood Urine Nitrite Urine Bilirubin Urine Urobilinogen Ur Leukocyte Esterase Urine Glucose COVID-19 Source SARS-CoV-2 (PCR) Influenza Type A (PCR) Influenza Type B (PCR) RSV (PCR) Time Spent with Patient Time Spent with Patient: 25-34 minutes Time was spent: preparing to see the patient(eg.review tests), referring, communicating with other health district manager primary care sales, indepentently interpreting results and counseling the patient
[2022-10-10] MEDS: Mylanta Suspension 30 ML CUP PO (23:35)
[2022-10-11] MEDS: PIPERACILLIN/TAZO 3.375 GM in Normal Saline 100 ML IVPB ×2 (01:50→07:40)
[2022-10-11] MEDS: Normal Saline Flush 10 ML SYR IVP ×3 (01:57→10:06)
[2022-10-11] MEDS: LORazepam 0.5 MG TAB PO (07:41)
[2022-10-11] MEDS: Dronabinol 2.5 MG CAP PO (07:41)
[2022-10-11 07:57] VITALS: BP 88/60; PULSE 74; RESP 16; TEMP 36.9; O2SAT 95
--- NOTE | 2022-10-11 07:57 | W.SURGCON ---
Date of service: 10/10/22 Time of Service: 09:00 Assessment and Plan Assessment and plan (1) Small bowel obstruction: Status: Acute Assessment and plan: I think her nausea and abdominal discomfort are more likely a result of her metastatic disease, and perhaps a side effect of the chemotherapy treatment rather than true bowel obstruction. Majority of her tumor burden within the hollow viscera is focused in the distal colon and proximal rectum. And there is not a significant amount of proximal colonic dilatation. Furthermore, symptoms have improved this morning without any specific treatment or decompression. I will defer any interventions until again is a chance to meet with Dr. Vargas regarding what kind of interventions she is willing to entertain. From my standpoint, I think the 2 most obvious options to decompress the bowel would be a diverting colostomy, or insertion of a percutaneous gastrostomy tube to help alleviate nausea. However, I would try to maximize medical therapies before going down those routes. I am really worried that she does not have long to live, and the any type of surgical intervention would only hasten her , and add some level of discomfort to an already unfortunate situation. History of Present Illness History of Present Illness Chief Complaint: Nausea Narrative: Domenico a 67-year-old woman with a recent diagnosis of metastatic rectal cancer. She did started chemotherapy. She comes to the emergency department with a chief complaint of vague abdominal discomfort and nausea. She underwent a CAT scan of the abdomen and pelvis that was interpreted as possible small bowel obstruction. Review of Systems Constitutional Constitutional: Reports body ache(s), Reports fatigue, Reports lethargy, Reports poor appetite, Reports weakness and Reports weight loss Eyes Eyes: Reports system reviewed and no additional complaints, except as documented ENT Ears, Nose, Mouth, and Throat: Reports system reviewed and no additional complaints, except as documented, Denies abnormal hearing and Reports disequilibrium Cardiovascular Cardiovascular: Denies chest pain and Reports dyspnea on exertion Respiratory Respiratory: Denies chest congestion, Denies cough, Denies pain on inspiration and Reports dyspnea on exertion Gastrointestinal Gastrointestinal: Reports abdominal pain, Reports bloating and Reports early satiety Musculoskeletal Musculoskeletal: Reports back pain, Reports myalgias, Reports atrophy and Reports muscle weakness Neurologic Neurologic: Denies abnormal hearing, Denies abnormal speech, Reports disequilibrium and Reports weakness Psychiatric Psychiatric: Reports depression Endocrine Endocrine: Reports cold intolerance and Reports fatigue Hematologic/Lymphatic Hematologic/Lymphatic: Denies easy bleeding and Denies easy bruising PFSH All Active Problems (Updated 10/10/22 @ 17:42 by Wilber Jimenes MD) Discharge planning issues (Acute) Gram-negative bacteremia (Acute) Pulmonary embolism (Chronic) Small bowel obstruction (Acute) Rectal cancer (Acute) Malnutrition (Acute) Hypokalemia (Acute) Abdominal ascites (Acute) Hypomagnesemia (Acute) Pneumonia (Acute) Palliative care patient (Acute) Unintentional weight loss (Acute) Metastatic carcinoma (Acute) Hyponatremia (Acute) Adenocarcinoma of right breast (Chronic) 09/23/15; [facility] [place]; ER,DE POSITIVE Infiltrating ductal carcinoma of breast (Chronic 01/21/13) [facility] [place]; RIGHT BREAST lumpectomy,chemo,radiation Annual physical exam (Acute 06/03/17) Essential hypertension (Chronic 06/30/13) 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 White coat syndrome with hypertension (Chronic 10/01/17) Surgical History Breast, Lumpectomy (~02/2013) Cholecystectomy Reduction mammoplasty (~02/2013) Family History Mother , AGE 78 Cervical cancer Father , AGE 67 Hyperlipidemia PTSD (post-traumatic stress disorder) Hypertension Sister Hyperlipidemia Hypertension Brother , AGE 64 Essential hypertension Bladder cancer Alcohol abuse Substance abuse Brother Heart disease Alcohol abuse Substance abuse Hypertension Brother Substance abuse Diabetes Hypertension Alcohol abuse Depression Maternal Grandfather , AGE 78 Heart disease Paternal Grandfather , AGE 75 Heart disease Maternal Grandmother , AGE 85 No problems noted. Paternal Grandmother , AGE 81 No problems noted. Daughter Melanoma Hypertension Social History Smoking/Tobacco Use Status: Never Second Hand Exposure: No Smoking risk assessment performed?: Yes Alcohol Intake: current Alcohol Intake frequency: holidays/special occasions only Alcohol type: hard liquor Drug use: Never Substance use type: does not use Caregiver/Support person: No Household members: none Housing: house Pets and animals: No Sexually active: Yes Do you think of yourself as: straight/heterosexual Current gender identity: female Duration: 30-45 minutes/day Frequency: 3-4 times per week Clarissa/Roman Catholic: Amish Special clarissa needs: No Do you feel safe at home: Yes Do you feel safe in your relationship?: Yes Exam Const General: no acute distress Nutritional Appearance: cachectic Orientation: alert, awake and oriented x3 Cardio Rate: regular rate Rhythm: regular rhythm GI Inspection: non-distended Palpation: soft and tender Auscultation: normal bowel sounds Results Last Vital Signs Temp 97.2 F L 10/10/22 22:54 Pulse 78 10/10/22 22:54 Resp 16 10/10/22 22:54 BP 101/68 10/10/22 22:54 Pulse Ox 96 10/10/22 22:54 Labs 10/10/22 06:27 10/10/22 06:27 Labs: Laboratory Results - last 24 hr 10/10/22 09:53 APTT Cancelled
[2022-10-11 08:00] VITALS: BP 88/60
--- NOTE | 2022-10-11 08:58 | PDOC.CMPRO ---
- If Service Date Differs Date of service: 10/11/22 Time of Service: 08:58 Care Management Progress Note S/O: Shana and her daughter met with Ally from Hospice to discuss discharge planning. A plan was established for Shana to discharge home tomorrow with same day admission after DME is delivered. Per Dr. Jimenes, Shana's conditioned has deteriorated today she was transitioned to comfort measures and will remain at [facility] for end of life Care. CM will continue to support pt and her family during this difficult time. A: 67 year old female admitted to [facility] on 10/09/22 for Metastatic carcinoma P: Shana is too ill to discharge home on hospice and transitioned to comfort care on 10/11/22. The plan is for her to remain at [facility] for end of life care. CM will continue to follow.
[2022-10-11] MEDS: Enoxaparin 80 MG/0.8 ML SYR 60 MG SC (11:34)
[2022-10-11] MEDS: Scopolamine 1 MG/3 DAYS PATCH TD (13:30)
--- NOTE | 2022-10-11 15:51 | W.PM.PROGNOT ---
Date of Service Date of service: 10/11/22 Time of Service: 15:51 Assessment and Plan Assessment and plan (1) Metastatic carcinoma: Status: Acute Assessment and plan: Widely metastatic colorectal cancer. Palliative consult appreciated. She has signed a COLST form and wishes to pursue no further txs. Hospice to evaluate and admit to their service tomorrow. She then desires to go home. See D/C planning issues. (2) Gram-negative bacteremia: Status: Acute Assessment and plan: D/C'd vancomycin. Now on comfort measures and Zosyn discontinued. (3) Pulmonary embolism: Status: Chronic Assessment and plan: Initially placed on heparin then changed to lovenox. Will stop AC. (4) Discharge planning issues: Status: Acute Assessment and plan: Planned d/c tomorrow to hospice. However, she is nearly obtunded today and daughter will be the only caregiver if she were to go home. Daughter and I believe it would be more appropriate for pt to stay in hospital for end of life care which looks imminent. Comfort measures initiated. DNR/DNI Subjective Subjective Patient reports: afebrile; denies diarrhea or vomiting Interval history since last seen: Very lethargic. Exam Narrative Exam Narrative: Gen: appears cachectic and frail. Lethargic. Neck supple Lungs clear anteriorly Heart RRR Abdomen mild diffuse tenderness w/o rebound Exts no edema. Objective Last Vital Signs Temp 36.9 C 10/11/22 07:57 Pulse 74 10/11/22 07:57 Resp 16 10/11/22 07:57 BP 88/60 L 10/11/22 08:00 Pulse Ox 95 10/11/22 07:57 Time Spent with Patient Time Spent with Patient: 25-34 minutes Time was spent: preparing to see the patient(eg.review tests), counseling the patient (and daughter) and care coordination
[2022-10-11] MEDS: LORazepam 1 MG TAB PO (19:20)
[2022-10-12] MEDS: MORPHine 4 MG/ML SYR IVP ×3 (01:32→23:38)
[2022-10-12] MEDS: LORazepam 2 MG/ML VIAL 1 MG IVP (01:33)
--- NOTE | 2022-10-12 08:45 | CMPROGNOTE_ITS ---
- If Service Date Differs Date of service: 10/12/22 Time of Service: 08:45 Care Management Progress Note S/O: Shana was transitioned to comfort measures yesterday with a plan to remain at [facility] for end of life Care. CM will continue to follow.Shana appears to be comfortable and is lying in bed. She is accompanied by her daughter and son in law. Her grandson is also coming to see her. A hospice cart is set up and well supplied for the family. Family has no needs at this time. A: 67 year old female admitted to [facility] on 10/09/22 for Metastatic carcinoma P: Shana transitioned to comfort care on 10/11/22 with a plan to remain at [facility] for end of life care. CM will continue to support pt and her family during this difficult time.
[2022-10-12] MEDS: Normal Saline Flush 10 ML SYR IVP ×2 (13:19→23:38)
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
--- NOTE | 2022-10-12 14:58 | W.PM.PROGNOT ---
Date of Service Date of service: 10/12/22 Time of Service: 14:58 Assessment and Plan Assessment and plan (1) Metastatic carcinoma: Status: Acute Assessment and plan: Widely metastatic colorectal cancer. She has signed a COLST form and wishes to pursue no further txs. Now comfort care status. (2) Gram-negative bacteremia: Status: Acute Assessment and plan: Antibiotics discontinued. (3) Pulmonary embolism: Status: Chronic Assessment and plan: Now on no anticoagulation; comfort care at end-of-life. (4) Discharge planning issues: Status: Acute Assessment and plan: Planned d/c home to hospice. However, she progressed to an obtunded state and daughter will be the only caregiver if she were to go home. Daughter and I believe it would be more appropriate for pt to stay in hospital for end of life care which looks imminent. Comfort measures initiated. DNR/DNI Subjective Subjective Interval history since last seen: Obtunded. Received one dose of IV lorazepam and morphine overnight. Exam Narrative Exam Narrative: Asleep. Not restless or appearing to be in pain. Nonlabored breathing. Objective Last Vital Signs Temp 36.9 C 10/11/22 07:57 Pulse 74 10/11/22 07:57 Resp 16 10/11/22 07:57 BP 88/60 L 10/11/22 08:00 Pulse Ox 95 10/11/22 07:57 Time Spent with Patient Time Spent with Patient: <25 minutes Time was spent: care coordination and other (talking with family.)
[2022-10-13] MEDS: LORazepam 2 MG/ML VIAL 1 MG IV/SC (10:42)
[2022-10-13] MEDS: MORPHine 4 MG/ML SYR IVP (10:42)
--- NOTE | 2022-10-13 18:28 | W.PM.PROGNOT ---
Date of Service Date of service: 10/13/22 Time of Service: 18:28 Assessment and Plan Assessment and plan (1) Metastatic carcinoma: Status: Acute Assessment and plan: Widely metastatic colorectal cancer. She has signed a COLST form and wishes to pursue no further txs. Now comfort care status. Appears comfortable (2) Gram-negative bacteremia: Status: Acute Assessment and plan: Antibiotics discontinued. (3) Pulmonary embolism: Status: Chronic Assessment and plan: no anticoagulation; comfort care at end-of-life. (4) Discharge planning issues: Status: Acute Assessment and plan: Remaining in hospital for end of life care which looks imminent. Comfort measures continued DNR/DNI discussed with Dr Christie Subjective Subjective Patient reports: no new complaints Interval history since last seen: Unresponsive, regular respirations, family at bedside. Does not appear to be in pain; no grimacing Exam Narrative Exam Narrative: Asleep. Not restless or appearing to be in pain. Nonlabored breathing. Objective Last Vital Signs Temp 36.9 C 10/11/22 07:57 Pulse 74 10/11/22 07:57 Resp 16 10/11/22 07:57 BP 88/60 L 10/11/22 08:00 Pulse Ox 95 10/11/22 07:57 Time Spent with Patient Time Spent with Patient: 35-49 minutes Time was spent: referring, communicating with other health medical care manager and care coordination
[2022-10-14] MEDS: MORPHine 4 MG/ML SYR IVP (08:04)
[2022-10-14] MEDS: Normal Saline Flush 10 ML SYR IVP (08:04)
--- NOTE | 2022-10-14 16:02 | EXPE_ITS ---
Date of service: 10/14/22 Time of Service: 13:15 Discharge Plan Disposition Patient Disposition: Discharge Details Reason For Visit: Abdominal Pain,Metastatic Colorectal Cancer,PE,Par Admit Date/Time: 10/09/22 23:54 Admit Provider: Martin Crane Attending Provider: Martin Crane Primary Care Provider: Mehreen Vargas [facility] Course Hospital Course: This is a 67-year-old female patient who presented to the [facility] ED from home with her daughter.? She described rapid onset of nausea and bloating in her abdomen.? She was diagnosed in August with stage IV metastatic, to liver, colorectal adenocarcinoma.? This weekend she finished her first 46-hour infusion of FOLFOX. Laboratories in the ED note a white blood cell count of 9, hematocrit 40, platelets 169.? Lactic acid elevated 4.3.? She had hyponatremia with sodium 130, potassium 4.4, chloride 96, bicarb 23, BUN 31 and creatinine 0.8.? Total bili is elevated at 3.0.? AST 106, ALT 84.? Albumin is 2.0.? Screening virus panel negative.? Imaging: Patient has advancing metastatic cancer now with metastases to lung, liver, pancreas, adrenal glands, and mesentery.? There was evidence of a left lower lobe PE.? There were dilated small bowel loops with possible obstruction and extensive mass present in the distal sigmoid colon. The patient at that point was hesitant to pursue aggressive and invasive procedures.? She remained a full code but at that point did not want prolonged life support.? She was admitted to the hospital. She was seen by surgery. They suggest her nausea is stemming from her metastatic disease, and perhaps a side effect of the chemotherapy treatment rather than a true bowel obstruction.? Majority of her tumor burden within the hollow viscera is focused in the distal colon and proximal rectum.? Symptoms improved without any specific treatment or decompression.? Interventions were deferred until she was able top meet with Dr. Vargas regarding what kind of interventions she was willing to entertain.? Surgery felt any type of surgical intervention would only hasten her , and add some level of discomfort to an already unfortunate situation. After meeting with Dr Vargas, she changed her code status from full code to DNR and was going to go home on hospice.? She declined rapidly and the next day her daughter said she was unable to take Shana home and care for her in her poor condition.? Shana requested comfort measures only.? She was put on comfort measures and her pain was controlled well.? Family was at bedside. She passed peacefully. Passed at 1300 h Pronounced @ [address] Christie. Discharge Data Cause of : Colon neoplasm Discharge Date/Time-TO BE ENTERED AT DEPARTURE: 10/14/22 13:15 Discharge Sum: Prov Provider Consults: 10/09/22 23:56 Surgical Consult [CONS] Routine Consulting Provider: [facility] Consultation Status:: Follow-up needed Clarification:: Manage/follow per spec. Reason for consult:: partial SBO 10/09/22 23:57 CONS Palliative Care [Palliative Care Consult] [CONS] Routine Consultation Status:: Follow-up needed Clarification:: Manage/follow per spec. Reason for consult:: widely metastatic colorectal cancer 10/10/22 11:36 Hospice Consult [CONS] Routine Consultation Status:: Contact made by MD Clarification:: Manage/follow per spec. Reason for consult:: Advanced metastatic cancer. Discharge Sum: Diag PCOD Cause of : Colon neoplasm Contributing Factors (1) Metastatic carcinoma: (2) Gram-negative bacteremia: (3) Pulmonary embolism: (4) Discharge planning issues: Discharge Sum: Summary Additional Data Confirmation of as documented by pronouncing clinician: no pulse, no respirations, no heart sounds and pupils fixed and dilated Family: at bedside Attending/PCP notified?: Yes Was code activated?: No Autopsy requested?: No gun examiner notified?: No Organ bank notified?: Yes Advance directives: Yes Hospice patient?: No
--- NOTE | 2022-10-14 16:04 | DSE_ITS ---
Date of service: 10/14/22 Time of Service: 13:15 DS: Diagnosis Discharge Diagnosis (1) Metastatic carcinoma: Status: Acute (2) Gram-negative bacteremia: Status: Acute (3) Pulmonary embolism: Status: Chronic (4) Discharge planning issues: Status: Acute Discharge Plan Disposition Patient Disposition: Discharge Details Reason For Visit: Abdominal Pain,Metastatic Colorectal Cancer,PE,Par Admit Date/Time: 10/09/22 23:54 Admit Provider: Martin Crane Attending Provider: Martin Crane Primary Care Provider: Mehreen Vargas Hospital Course Hospital Course: This is a 67-year-old female patient who presented to the [facility] ED from home with her daughter.? She described rapid onset of nausea and bloating in her abdomen.? She was diagnosed in August with stage IV metastatic, to liver, colorectal adenocarcinoma.? This weekend she finished her first 46-hour infusion of FOLFOX. Laboratories in the ED note a white blood cell count of 9, hematocrit 40, platelets 169.? Lactic acid elevated 4.3.? She had hyponatremia with sodium 130, potassium 4.4, chloride 96, bicarb 23, BUN 31 and creatinine 0.8.? Total bili is elevated at 3.0.? AST 106, ALT 84.? Albumin is 2.0.? Screening virus panel negative.? Imaging: Patient has advancing metastatic cancer now with metastases to lung, liver, pancreas, adrenal glands, and mesentery.? There was evidence of a left lower lobe PE.? There were dilated small bowel loops with possible obstruction and extensive mass present in the distal sigmoid colon. The patient at that point was hesitant to pursue aggressive and invasive procedures.? She remained a full code but at that point did not want prolonged life support.? She was admitted to the hospital. She was seen by surgery. They suggest her nausea is stemming from her metastatic disease, and perhaps a side effect of the chemotherapy treatment rather than a true bowel obstruction.? Majority of her tumor burden within the hollow viscera is focused in the distal colon and proximal rectum.? Symptoms improved without any specific treatment or decompression.? Interventions were deferred until she was able top meet with Dr. Vargas regarding what kind of interventions she was willing to entertain.? Surgery felt any type of surgical intervention would only hasten her , and add some level of discomfort to an already unfortunate situation. After meeting with Dr Vargas, she changed her code status from full code to DNR and was going to go home on hospice.? She declined rapidly and the next day her daughter said she was unable to take Shana home and care for her in her poor condition.? Shana requested comfort measures only.? She was put on comfort measures and her pain was controlled well.? Family was at bedside. She passed peacefully. Passed at 1300 h Pronounced @ [address] Christie. Discharge Data Cause of : Colon neoplasm Discharge Date/Time-TO BE ENTERED AT DEPARTURE: 10/14/22 13:15 DS: Summary Time Spent with Patient providing and/or coordinating discharge services: Greater than 30 minutes Status at Discharge Functional status at discharge: bed bound Overall status at discharge: other Mental Status: other Speech and Movement: other Mood: other Affect: other Exam Psych Mental Status: other Speech and Movement: other Mood: other Affect: other DS: Data Vitals/I&O Vitals and I&O: Vital Signs Temperature 36.9 C 10/11/22 07:57 Temperature Source Tympanic 10/11/22 07:57 Pulse 74 10/11/22 07:57 Pulse Rhythm Regular 10/11/22 07:38 Pulse 83 10/10/22 00:37 Respiratory Rate 16 10/11/22 07:57 Respiratory Effort Normal, Non-Labored 10/11/22 07:38 Respiratory Depth Normal 10/11/22 07:38 Respiratory Pattern Normal 10/11/22 07:38 Blood Pressure 88/60 L 10/11/22 08:00 Blood Pressure Mean 59 10/10/22 00:37 Blood Pressure Position Supine 10/09/22 18:45 Pulse Oximetry 95 10/11/22 07:57 Oxygen Delivery Method Room Air 10/11/22 07:57 Oxygen Flow Rate 0 10/11/22 07:57 Pain Level 0 10/12/22 14:19 Comment Pt. was asleep; pt. denies pain at this time; pt. easily fell asleep again. 10/11/22 11:33 Intake & Output 10/13/22 10/14/22 10/14/22 23:59 11:59 23:59 Other: Urine Color Dark Giselle Urine Appearance Clear Data Completed and Pending Labs on day of discharge: Preliminary micro results at discharge 10/09/22 19:40 Blood Culture - Preliminary Blood NO GROWTH 96 HOURS PFSH All Active Problems (Updated 10/11/22 @ 10:19 by Brynn French MD) Hospice care (Acute) Discharge planning issues (Acute) Gram-negative bacteremia (Acute) Pulmonary embolism (Chronic) Small bowel obstruction (Acute) Rectal cancer (Acute) Malnutrition (Acute) Hypokalemia (Acute) Abdominal ascites (Acute) Hypomagnesemia (Acute) Pneumonia (Acute) Palliative care patient (Acute) Unintentional weight loss (Acute) Metastatic carcinoma (Acute) Hyponatremia (Acute) Adenocarcinoma of right breast (Chronic) 09/23/15; [facility] [place]; ER,[place] POSITIVE Infiltrating ductal carcinoma of breast (Chronic 01/21/13) [facility] [place]; RIGHT BREAST lumpectomy,chemo,radiation Annual physical exam (Acute 06/03/17) Essential hypertension (Chronic 06/30/13) 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 White coat syndrome with hypertension (Chronic 10/01/17) Surgical History Breast, Lumpectomy (~02/2013) Cholecystectomy Reduction mammoplasty (~02/2013) Family History Mother , AGE 78 Cervical cancer Father , AGE 67 Hyperlipidemia PTSD (post-traumatic stress disorder) Hypertension Sister Hyperlipidemia Hypertension Brother , AGE 64 Essential hypertension Bladder cancer Alcohol abuse Substance abuse Brother Heart disease Alcohol abuse Substance abuse Hypertension Brother Substance abuse Diabetes Hypertension Alcohol abuse Depression Maternal Grandfather , AGE 78 Heart disease Paternal Grandfather , AGE 75 Heart disease Maternal Grandmother , AGE 85 No problems noted. Paternal Grandmother , AGE 81 No problems noted. Daughter Melanoma Hypertension Social History Smoking/Tobacco Use Status: Never Second Hand Exposure: No Smoking risk assessment performed?: Yes Alcohol Intake: current Alcohol Intake frequency: holidays/special occasions only Alcohol type: hard liquor Drug use: Never Substance use type: does not use Caregiver/Support person: No Household members: none Housing: house Pets and animals: No Sexually active: Yes Do you think of yourself as: straight/heterosexual Current gender identity: female Duration: 30-45 minutes/day Frequency: 3-4 times per week Clarissa/[employer]: [employer] Special clarissa needs: No Do you feel safe at home: Yes Do you feel safe in your relationship?: Yes Time Spent with Patient Time Spent with Patient: 45-69 minutes Time was spent: ordering medications,tests, procedures, counseling the patient and care coordination
--- NOTE | 2022-10-14 19:25 | W.PALPGNOTE ---
Date of service: 10/14/22 Time of Service: 09:00 Assessment and Plan Assessment and plan (1) Rectal cancer: Status: Acute Assessment and plan: 67-year-old woman with end-stage metastatic colon cancer. She is presently obtunded but looks comfortable except for the furloughed brow. I did ask staff to give her a milligram of Ativan which I think will help her to relax more. Family was in favor of this. Discussion with family. They are very happy with her care. They are hoping that the rest of her passing goes well. Shana was going to go home on hospice but due to her change in condition she is staying in the hospital for end-of-life care I did speak with her daughter about possibly doing some foot massage. She was in favor of it. I spoke with nursing and they will be certain she has some cream. Subjective Subjective Interval history since last seen: Shana is lying peacefully on her bed, family on either side. HAsn't required much medication. Family is very happy with the wonderful care Shana is receiving Exam Narrative Exam Narrative: Shana is lying in bed. Her son-in-law is on her right side, daughter is on the left side. She does have a little bit of a furloughed brow. She is breathing smoothly. Scopolamine patch is in place. When I examined her she does not show any pain. Objective Last Vital Signs Temp 98.4 F 10/11/22 07:57 Pulse 74 10/11/22 07:57 Resp 16 10/11/22 07:57 BP 88/60 L 10/11/22 08:00 Pulse Ox 95 10/11/22 07:57
== END 2022-10-14 13:15 | disposition expired | DRG 843 ==
LOC: ER 10-10 00:53 → MS 10-10 00:55
PROVIDERS: Emergency Medicine; Admitting Provider General Practice; Emergency Provider Emergency Medicine; PCP Family Medicine; Visit Provider General Practice
DX: C80.0 Disseminated malignant neoplasm, unspecified (principal); I26.99 Other pulmonary embolism without acute cor pulmonale; K56.600 Partial intestinal obstruction, unspecified as to cause; D84.9 Immunodeficiency, unspecified; E87.1 Hypo-osmolality and hyponatremia; E46 Unspecified protein-calorie malnutrition; R78.81 Bacteremia; C20 Malignant neoplasm of rectum; Z51.5 Encounter for palliative care; Z85.3 Personal history of malignant neoplasm of breast; I10 Essential (primary) hypertension; I95.9 Hypotension, unspecified; R35.0 Frequency of micturition; Z79.899 Other long term (current) drug therapy; E87.6 Hypokalemia; G62.0 Drug-induced polyneuropathy; T45.1X5A Adverse effect of antineoplastic and immunosuppressive drugs, initial encounter
CPT/HCPCS: 36415; 51702; 74177; 80048; 80053; 85027; 87040; 87077; 87637; 93005; 96361; 96365; 96366; 96367; 99221; 99285; 70450; 71260; 81003; 83605; 85025; 85730; 87186; 93010; 99223; 99231; 99232; 99239; 99308; J1650; J1720; J2060; J2270; J2543